=== PATIENT | male | born 1940 | race Caucasian/White ===

== ENCOUNTER → 2018-11-26 10:23 | Outpatient (CLI) | payer MEDICARE, SELFPAY ==
--- NOTE | 2018-11-26 10:36 | CT_ITS ---
HISTORY:DEMENTIA, RT COCHLEAR IMPLANT, HX-COPD DEMENTIA, RT COCHLEAR IMPLANT, HX-COPD TECHNIQUE: Multiple axial images were obtained of the brain without intravenous contrast. A radiation dose optimization technique was used for this scan. IV Contrast dosage and agent: None. COMPARISON: December 31, 2013 FINDINGS: # of images incl. paperwork: 255 Study limited by metallic artifact INFARCT: None HEMORRHAGE: None PARENCHYMAL ATTENUATION:Diffuse periventricular white matter low density compatible with chronic small vessel ischemic change similar to prior study MASS: None MIDLINE SHIFT: None BASAL CISTERNS: Patent VENTRICLES: Normal in size and configuration for age PARANASAL SINUSES:Clear MASTOID AIR CELLS: Clear ORBITS:No acute pathology CALVARIUM: Surgical resection of most of the right mastoid. Visualized on the prior study. Again noted is a cochlear implant in similar position a prior study OTHER TISSUES: No acute pathology ASPECTS Score for Acute Strokes: 10 CT/Brain/Head without Contrast IMPRESSION: No acute intracranial pathology. Chronic changes similar to prior study Cochlear implant similar to prior study Individualized dose optimization techniques were used for this CT. at 0134 Reported and signed by: Chayito Lackey DO Electronically Signed: Chayito Lackey DO at 1:33 EDT Tel , Service support ,
== END ==
PROVIDERS: Family Provider Family Medicine; PCP Family Medicine; Referring Provider Psychiatry & Neurology Neurology; Visit Provider Psychiatry & Neurology Neurology
DX: F03.90 Unspecified dementia, unspecified severity, without behavioral disturbance, psychotic disturbance, mood disturbance, and anxiety (principal)
CPT/HCPCS: 70450

== ENCOUNTER 2019-11-21 12:14 | Emergency (ER) | payer MEDICARE, SELFPAY ==
[2019-11-21] VITALS (11 sets, daily range): BP systolic 107–188; BP diastolic 55–89; PULSE 50–90; RESP 16–20; TEMP 37; O2SAT 94–99; BMI 23.9
--- NOTE | 2019-11-21 13:17 | EKG12_ITS ---
Test Reason : MENTAL HEALTH Blood Pressure : / mmHG Vent. Rate : 068 BPM Atrial Rate : 081 BPM P-R Int : 000 ms QRS Dur : 084 ms QT Int : 394 ms P-R-T Axes : 000 051 050 degrees QTc Int : 418 ms Atrial fibrillation Abnormal ECG Confirmed by CYN BONILLA, AVNI ([id number]), telegraph editor DUSTY BUNN ([id number]) on 11/28/2019 8:58:48 AM Referred By: PAT Confirmed By:NAVID ADDISON MD
--- NOTE | 2019-11-21 13:18 | ED.VIS.GEN ---
History of Present Illness Chief Complaint: Mental Health Informant: Patient, Family, SNF Narrative: Patient is currently at present at [facility]. He has been there for approximately 1 year and per nursing staff there had problems with alcohol withdrawal at first. He has become increasingly restless over the past week trying to leave the facility. Yesterday he reportedly posted nurse to get outside. Today he stated that he was going to take the cap off his water bottle and stabbed himself until he was . The patient tells me that he is embarrassed by what transpired. He states that his memory is not what it used to be. He tells me that it is so hard for him to feel locked inside that he just wants to get out and do things. He tells me he cannot remember the name of his hometown. 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 He states he does not feel suicidal or feel that he is a harm to anyone at the time. Staff is concerned because over the past week he seems to be escalating. Past Medical History - Allergies and Home Meds Allergies/Adverse Reactions: Allergies No Known Allergies Allergy (Verified 11/21/19 12:24) Primary Care Physician: Tony Corbin MD [Primary Care Provider] - Prior records reviewed: Yes Surgical History: noncontributory Lives: Intermediate Smoking Status: Never smoker Drugs: None Review of Systems General: Denies: Chills, Fever, Sweats Eyes: Denies: Visual changes - bilaterally, Diplopia ENT: Denies: Rhinorrhea, Sore throat Cardiovascular: Denies: Chest pain, Palpitations Respiratory: Denies: Dyspnea, Cough, Dyspnea on exertion Gastrointestinal: Denies: Abdominal pain, Nausea, Vomiting, Diarrhea, Melena, Hematochezia Genitourinary: Denies: Dysuria, Hematuria, Frequency Musculoskeletal: Denies: Back pain, Extremity Pain Skin: Denies: Rash, Wounds Neurological: Denies: Headache, Weakness, Numbness Psych: Reports: - - Aggressive behavior. memory issues. Please see history of present illness. Denies: Suicidal thoughts, Suicidal ideations Physical Exam Vital Signs/Narrative: Vital Signs Temp Pulse Resp BP Pulse Ox 11/21/19 12:21 98.6 F 77 18 169/88 H 99 Inital Vital Signs reviewed: Yes General: Well nourished, Well developed, No Acute Distress Head: Normocephalic, Atraumatic Eyes: Perrl, EOMI ENT: Moist mucous membranes, No rhinorrhea Neck: Supple, Nontender Cardiovascular: Regular rate, Regular rhythm, No murmurs Respiratory: No distress, CTA bilaterally, Chest nontender Abdomen: Soft, Nontender, Nondistended, Normal bowel sounds Back: Nontender, Normal Inspection Extremities: Nontender, No edema Skin: Normal color, No rash Neurological: Alert, Cranial nerves II-XII grossly intact, Normal Strength, Normal Sensation, - - Patient is unaware of what town he is currently residing in. Patient does not know the year. Psychological: Depressed Diagnostic/Tx/Re-eval Clinical Impression(s) from Imaging Studies Brain CT 11/21/19 13:40 IMPRESSION: Chronic involutional changes of the brain. There has been no change. Electronically Signed: Delano Orantes, at 13:57 EDT , Service support , Chest X-Ray 11/21/19 13:45 IMPRESSION: Hyperinflation. Healed bilateral rib fractures. Electronically Signed: Delano Orantes, at 14:01 EDT , Service support , Laboratory Last Values WBC 5.0 K/mm3 (4.4-11.0) 11/21/19 13:30 RBC 4.37 M/mm3 (4.6-6.2) L 11/21/19 13:30 Hgb 14.0 g/dL (13.0-16.5) 11/21/19 13:30 Hct 42.9 % (40-54) 11/21/19 13:30 MCV 98.2 fL (80-94) H 11/21/19 13:30 MCH 32.0 pg (27.0-32.0) 11/21/19 13:30 MCHC 32.6 g/dL (32-36) 11/21/19 13:30 RDW Std Deviation 53.8 fl (35.1-43.9) H 11/21/19 13:30 RDW Coeff of Mindy 14.8 % (11.6-14.6) H 11/21/19 13:30 Plt Count 111 K/mm3 (150-450) L 11/21/19 13:30 MPV 10.2 fl (6.2-12.0) 11/21/19 13:30 Immature Gran % (Auto) 0.200 % (0.0-0.9) 11/21/19 13:30 Neut % (Auto) 59.9 % (47-70) 11/21/19 13:30 Lymph % (Auto) 30.1 % (19-41) 11/21/19 13:30 Doddridge % (Auto) 7.6 % (0-10) 11/21/19 13:30 Eos % (Auto) 1.6 % (0-5) 11/21/19 13:30 Baso % (Auto) 0.6 % (0-1) 11/21/19 13:30 Absolute Neuts (auto) 3.0 X10^3/uL (2.0-7.7) 11/21/19 13:30 Absolute Lymphs (auto) 1.50 X10^3/uL (0.83-4.51) 11/21/19 13:30 Nucleated RBC % 0 % (0-5) 11/21/19 13:30 Sodium 141 mmol/L (136-145) 11/21/19 13:30 Potassium 4.0 mmol/L (3.5-5.1) 11/21/19 13:30 Chloride 109 mmol/L (98-107) H 11/21/19 13:30 Carbon Dioxide 29.0 mmol/L (21.0-32.0) 11/21/19 13:30 Anion Gap 3 (5-15) L 11/21/19 13:30 BUN 18 mg/dL (7-18) 11/21/19 13:30 Creatinine 1.00 mg/dL (0.70-1.30) 11/21/19 13:30 Estim Creat Clear Calc 65.74 ml/min 11/21/19 13:30 Est GFR (MDRD) Af Amer 93 mL/min (>60) 11/21/19 13:30 Est GFR (MDRD) Non-Af 77 mL/min (>60) 11/21/19 13:30 BUN/Creatinine Ratio 18.0 RATIO (10-20) 11/21/19 13:30 Glucose 91 mg/dL (74-106) 11/21/19 13:30 Calcium 8.8 mg/dL (8.5-10.1) 11/21/19 13:30 Total Bilirubin 0.50 mg/dL (0.20-1.00) 11/21/19 13:30 AST 16 U/L (15-37) 11/21/19 13:30 ALT 22 U/L (16-61) 11/21/19 13:30 Alkaline Phosphatase 60 U/L (45-117) 11/21/19 13:30 Troponin I < 0.015 ng/mL (<0.045) 11/21/19 13:30 Total Protein 7.6 g/dL (6.4-8.2) 11/21/19 13:30 Albumin 4.0 g/dL (3.2-5.0) 11/21/19 13:30 Globulin 3.6 g/dL (2.2-4.2) 11/21/19 13:30 Albumin/Globulin Ratio 1.1 RATIO (0.9-2.4) 11/21/19 13:30 TSH 1.71 uIU/mL (0.358-3.74) 11/21/19 13:30 Urine Color Yellow (Yellow) 11/21/19 13:30 Urine Clarity Clear (Clear) 11/21/19 13:30 Urine pH 7.0 (5.0 - 8.0) 11/21/19 13:30 Ur Specific Kimball 1.015 (1.002-1.030) 11/21/19 13:30 Urine Protein 30 mg/dl (Negative) H 11/21/19 13:30 Urine Glucose (UA) Normal mg/dl (Normal) 11/21/19 13:30 Urine Ketones Negative mg/dl (Negative) 11/21/19 13:30 Urine Occult Blood Negative /ul (Negative) 11/21/19 13:30 Urine Nitrite Negative (Negative) 11/21/19 13:30 Urine Bilirubin Negative mg/dL (Negative) 11/21/19 13:30 Urine Urobilinogen Normal mg/dl (Normal) 11/21/19 13:30 Ur Leukocyte Esterase Negative /ul (Negative) 11/21/19 13:30 Urine RBC 0 SEEN /hpf (0-5) 11/21/19 13:30 Urine WBC 0 SEEN /hpf (0-5) 11/21/19 13:30 Ur Squamous Epith Cells 0-5 SEEN /hpf (0-5) 11/21/19 13:30 Amorphous Sediment 1+ 11/21/19 13:30 Urine Bacteria 2+ /hpf (None Seen) 11/21/19 13:30 Urine Mucus 0 SEEN /hpf (<or=2+) 11/21/19 13:30 Urine Opiates Screen NEGATIVE (< 300 ng/mL) 11/21/19 13:30 Urine Methadone Screen NEGATIVE (< 300 ng/mL) 11/21/19 13:30 Ur Barbiturates Screen NEGATIVE (< 200 ng/mL) 11/21/19 13:30 Ur Phencyclidine Scrn NEGATIVE (< 25 ng/mL) 11/21/19 13:30 Ur Amphetamines Screen NEGATIVE (<1000 ng/mL) 11/21/19 13:30 U Methamphetamin-MDMA NEGATIVE (< 500 ng/mL) 11/21/19 13:30 U Benzodiazepines Scrn NEGATIVE (< 200 ng/mL) 11/21/19 13:30 Urine Cocaine Screen NEGATIVE (< 300 ng/mL) 11/21/19 13:30 U Cannabinoids Screen NEGATIVE (< 50 ng/mL) 11/21/19 13:30 Ur Drug Screen Comment 11/21/19 13:30 Ethyl Alcohol 6.0 mg/dL 11/21/19 13:30 - EKG Initial EKG Interpretation: Sinus Rhythm - EKG demonstrates a sinus rhythm with first-degree AV block with PACs. The sinus rhythm is best appreciated in lead V1. - Medical Decision Making We got social work involved in this case early. Social work to discuss with family and interviewed the patient. One point the patient got agitated got dressed and attempted to leave the emergency department. He was redirected. I have asked that we move the patient into a room that has a television and provide a newspaper. Patient's metabolic work-up is normal. Patient is cleared for crisis/psychiatric assessment from a medical standpoint. We are working towards transferring to the [facility] psychiatric facility. ED Disposition - Plan for ED Patient: Diagnosis: Dementia with aggressive behavior Referrals: Tony Corbin MD [Primary Care Provider] -
[2019-11-21 13:37] LABS: Mucous, Urine 0 SEEN /hpf (<or=2+); Red Blood Cells-Urine 0 SEEN /hpf (0-5)
--- NOTE | 2019-11-21 13:40 | CT_ITS ---
STUDY: CT BRAIN WITHOUT CONTRAST REASON FOR EXAM: Male, 78 years old. ALTERED MENTAL STATUS. RADIATION DOSAGE (If Supplied By Facility): CTDIvol = ( 60.81 ) mGy, DLP = ( 1089.89 ) mGycm TECHNIQUE: Transaxial CT imaging of the brain was performed without administration of intravenous contrast material. Individualized dose optimization techniques were used for this CT. COMPARISON: Comparison is made with prior study dated 11/26/2018. FINDINGS: Normal soft tissue structures. Right cochlear implant causes beam hardening artifacts overlying the posterior right cerebral hemisphere. There is mild cerebral atrophy with widening of the extra-axial spaces and ventricular dilatation. There are areas of decreased attenuation within the white matter tracts of the supratentorial brain, consistent with microvascular disease changes. Normal basal ganglia and thalami. Normal brainstem. Normal cerebellum. There is no intracranial hemorrhage. There are no findings of an acute ischemic infarction. Atherosclerotic calcific plaques of the vertebral arteries and cavernous portions of the internal carotid arteries bilaterally. Normal visualized paranasal sinuses. CT/Brain/Head without Contrast IMPRESSION: Chronic involutional changes of the brain. There has been no change. Electronically Signed: Delano Orantes, at 13:57 EDT , Service support ,
[2019-11-21 13:41] LABS: Color, Urine Yellow (Yellow); Glucose, Dipstick Normal (Normal); Ketone-Dipstick Negative (Negative); Leukocyte Esterase-Dipstick Negative /ul (Negative); Nitrite-Dipstick Negative (Negative); Occult Blood-Urine Negative /ul (Negative); Protein-Dipstick 30 mg/dl (Negative); Specific Gravity, Urine 1.015 (1.002-1.030); Urine Bilirubin Dipstick Negative (Negative); Urine Clarity Clear (Clear); Urine Urobilinogen Normal (Normal)
[2019-11-21 13:42] LABS: Basophil# 0.03 X10^3/uL; Basophil% 0.6 % (0-1); Eosinophil# 0.08 X10^3/uL; Eosinophils% 1.6 % (0-5); Hematocrit 42.9 % (40-54); Lymphocyte % 30.1 % (19-41); Mean Corp Hgb Conc 32.6 g/dL (32-36); Mean Corpuscular Volume 98.2 fL (80-94); Mean Platelet Vol. 10.2 fl (6.2-12.0); Monocyte# 0.38 X10^3/uL; Monocyte% 7.6 % (0-10); NRBC Flagged by Analyzer 0 % (0-5); Neutrophil # 2.99 X10^3/uL (2.7-7.7); Neutrophil % 59.9 % (47-70); Platelet Count 111 K/mm3 (150-450); RBC Distribution Width CV 14.8 % (11.6-14.6); RBC Distribution Width SD 53.8 fl (35.1-43.9); Red Blood Count 4.37 M/mm3 (4.6-6.2)
[2019-11-21 13:45] LABS: White Blood Cells 0 SEEN /hpf (0-5)
--- NOTE | 2019-11-21 13:45 | RAD_ITS ---
STUDY: X-RAY CHEST REASON FOR EXAM: Male, 78 years old. Mental health, sob TECHNIQUE: AP and lateral views of the chest. COMPARISON: Comparison is made with prior study dated 12/31/2013. FINDINGS: Hyperinflation. Scattered calcified granulomas. There is no demonstrated pleural abnormality. Normal size heart. Normal mediastinum and ivonne. Normal visualized pulmonary arteries. There is atherosclerotic calcification of the aortic arch with tortuosity. Normal visualized thoracic spine. Healed bilateral rib fractures. There is no demonstrated abnormality of the visualized soft tissue structures of the upper abdomen. RAD/Chest PA and Lateral IMPRESSION: Hyperinflation. Healed bilateral rib fractures. Electronically Signed: Delano Orantes, at 14:01 EDT , Service support ,
[2019-11-21 13:49] LABS: Bacteria 2+ /hpf (None Seen); Squamous Epithelial Cells - UA 0-5 SEEN /hpf (0-5)
[2019-11-21 13:50] LABS: Amorphous Sediment 1+; Amphetamine Urine VISTA NEGATIVE (<1000 ng/mL); Barbiturate Urine VISTA NEGATIVE (< 200 ng/mL); Benzodiazepine Urine VISTA NEGATIVE (< 200 ng/mL); Cocaine Urine VISTA NEGATIVE (< 300 ng/mL); Ecstacy Urine VISTA NEGATIVE (< 500 ng/mL); Methadone Urine VISTA NEGATIVE (< 300 ng/mL); PCP Urine VISTA NEGATIVE (< 25 ng/mL); THC Urine VISTA NEGATIVE (< 50 ng/mL); Vista UDS pH Range 6
[2019-11-21 14:25] LABS: ALB/GLOB Ratio 1.1 RATIO (0.9-2.4); AST(SGOT) 16 U/L (15-37); Alanine Aminotransfer ALT/SGPT 22 U/L (16-61); Alkaline Phosphatase 60 U/L (45-117); Anion Gap 3 (5-15); BUN 18 mg/dL (7-18); Calcium,Total 8.8 mg/dL (8.5-10.1); Chloride 109 mmol/L (98-107); EST Glomerular Filtration Rate 77 mL/min (>60); Est Glom Filt Rate - Afr Amer 93 mL/min (>60); Estimated Creatinine Clearance 65.74 ml/min; Globulin 3.6 g/dL (2.2-4.2); Glucose 91 mg/dL (74-106); Protein, Total 7.6 g/dL (6.4-8.2); Sodium Level 141 mmol/L (136-145); Thyroid Stim Hormone (TSH) 1.71 uIU/mL (0.358-3.74)
--- NOTE | 2019-11-21 15:00 | CM.ED ---
SOCIAL WORK Informant: Dr. Rowland Reason for Consult: Mental Health Evaluation Chief Compliant: Patient sent in from [facility]. Patient with history of dementia and hard of hearing. Patient from [facility]. Patient has tried to elope from facility and making suicidal comments with plan. 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 Treatment/History: Patient denies any history of mental health. Per patient's daughter, patient was hospitalized in September 2019 for [facility] psych. Triggers/Stressors: Patient wants to go home. 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 Coping Skills: Taking walks Substance Abuse History: Patient reports I used to drink in college. Per patient's daughter/Fabiola HELLER, patient heavily drank throughout adult life. Risk to Self/Others: Suicidal- Patient currently denies suicidal ideation, plan or intent. Updated by nurse at [facility], patient has been trying to escape and reported plan of ripping off top of water bottle and stab myself in the neck until I'm . Daughter states patient has made comments such as I'm just going to sit here and . Homicidal- Patient denies any homicidal ideation. Mental Status Exam: Orientation- A&Ox2 Memory- Impaired Appearance/General Behavior- clean/appropriate, agitated, calm, directable Mood/Affect- anxious Communication Pattern- responds to questions, requires extra time and questions repeated as patient is hard of hearing Thought Process- fragmented Judgment- unable to evaluate Assessment: Assessment completed by gathering information from nurseLore at [facility], patient's daughter/AMADOUFabiola Franck- [phone] and patient. Patient from [facility] and has been declining mentally over the last couple weeks. Patient has been refusing medications, meals, and has been exhibiting manic behaviors. Nurse reports patient has been trying to elope from facility and will pace in front of the doors. Patient has verbalized suicidal ideation with plan to nurse at [employer] [facility]. This worker attempted to complete assessment with patient. Patient confused and wanting to leave. 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 Discussed patient's status with daughter/HPOA, Fabiola who is in agreement with nicole psych hospitalization for stabilization. Collaboration with Dr. Rowland. Plan for [facility] psych. This worker to facilitate placement. Plan: Referral for nicole psych hospitalization. Cristobal Mcpherson, VOIP NETWORK TECHNICIAN, GAS REGULATOR REPAIRER HELPER
--- NOTE | 2019-11-21 15:47 | CHAPLAIN ---
Type of Pastoral Visit _x__ Initial Visit ___ Follow-up Visit ___ On-call Visit ___ General Patient Visit ___ Spiritual Assessment ___ Family Conference ___ Bereavement ___ Rapid Response ___ Code Blue ___ Other (describe below) Pastoral Care Referral From ___ Patient ___ Family _x__ Nurse ___ Physician ___ Virtual Assistant For Advertisers ___ Powerhouse Mechanic Apprentice ___ Other (describe below) Sacrament/Intervention _x__ Active listening ___ Anointing ___ Hinduism ___ Bereavement ___ Communion ___ Debbie exploration ___ ___ Life review ___ Prayer ___ Reconciliation ___ Sacrament of Sick _x__ Supportive presence ___ Wedding ___ Other (describe below) Pastoral Comments referral from auto tech during rounding in ED; sat with patient in room; pt could not tell this rare/endangered species specialist where he came from or where he was specifically but he could describe his residence and condition; pt was asking when his daughter would come to pick him up; pt was pleasant but confused; listened to patient; gave reassurance that he was safe and would be properly cared for in the ED; SW came to assess pt and this rare/endangered species specialist left
--- NOTE | 2019-11-21 16:22 | CM.ED ---
SOCIAL WORK Referral faxed and called to [facility]. Pending review at this time Cristobal Mcpherson, GREY GOODS EXAMINER, DOCUMENT COORDINATOR
[2019-11-21] MEDS: Haloperidol Lactate 5 MG/ML Vial IM (17:57)
--- NOTE | 2019-11-21 18:15 | NURSING ---
PER OUR TELEPHONE SALES AGENT ESEQUIEL MOORE IS REFERRED TO [facility]
--- NOTE | 2019-11-21 18:53 | CM.ED ---
SOCIAL WORK Call to [facility] to verify referral received, spoke with Leigh. Referral being reviewed at this time. Cristobal Mcpherson, E COMMERCE MANAGER, CLIENT SERVICE SUPERVISOR
--- NOTE | 2019-11-21 19:23 | CM.ED ---
SOCIAL WORK Call to patient's daughter to update on patient's status and referral for [facility] psych placement is pending at [facility]. All questions answered. Daughter to be updated once placement confirmed. Cristobal Mcpherson, SALES REPRESENTATIVE [employer], RN COMPLEX CARE
--- NOTE | 2019-11-21 19:54 | CM.ED ---
SOCIAL WORK Negative COVID-19 results and medication list faxed to [facility].
[2019-11-21] MEDS: LORazepam 2 MG/ML Syringe IM (20:12)
--- NOTE | 2019-11-21 20:13 | ED.RN ---
PT CONTINUED TO WALK OUT OF ROOM LOOKING FOR HIS CLOTHES, WANTING TO LEAVE. MULTIPLE EMPLOYEES MADE ATTEMPTS TO GET PT BACK INTO ROOM. OR MEDS INITIALLY ORDERED, PHARMACY DID NOT PROVIDE IN ADEQUATE TIME. IM MEDS OBTAINED FROM . PT WAS PLACED INTO RESTRAINTS HE WAS YELLING AT STAFF, TRYING TO HIT AND KICK STAFF.
--- NOTE | 2019-11-21 20:26 | CM.ED ---
SOCIAL WORK Call from [place] with [facility]. Patient accepted by Dr. Freeman to room 200 bed 2. Report to be called to . Facility has set up transport that is to arrive around 9:40p. Staff updated. Call to patient's daughter Fabiola to update on the above. Cristobal Mcpherson, INDEPENDENT CROP CONSULTANT, RN ONCOLOGY
[2019-11-21] MEDS: MELATONIN 3 MG TABLET PO (20:47)
[2019-11-21] MEDS: Gabapentin 300 MG Capsule PO (20:47)
[2019-11-21] MEDS: Famotidine 20 MG Tablet PO (20:47)
[2019-11-21] MEDS: QUEtiapine 25 MG Tablet PO (20:48)
== END 2019-11-21 23:03 ==
PROVIDERS: Emergency Provider Emergency Medicine; PCP Family Medicine
DX: F03.91 Unspecified dementia, unspecified severity, with behavioral disturbance (principal); I44.0 Atrioventricular block, first degree; I49.1 Atrial premature depolarization; Z79.899 Other long term (current) drug therapy
CPT/HCPCS: 36415; 70450; 71046; 80053; 80307; 80320; 81001; 84443; 84484; 85025; 87635; 93005; 96372; 99285; G0480; U0003

== ENCOUNTER → 2019-12-20 15:40 | Outpatient (REF) | payer MEDICARE, SELFPAY ==
[2019-11-21 12:21] VITALS: BMI 23.9
[2019-12-20 18:03] LABS: AST(SGOT) 18 U/L (15-37); Alanine Aminotransfer ALT/SGPT 25 U/L (16-61); Albumin, Serum 3.7 g/dL (3.2-5.0); Alkaline Phosphatase 66 U/L (45-117); Anion Gap 2 (5-15); BUN 23 mg/dL (7-18); BUN/Creat Ratio 20.2 RATIO (10-20); Calcium,Total 8.7 mg/dL (8.5-10.1); Chloride 108 mmol/L (98-107); Creatinine, Serum 1.14 mg/dL (0.70-1.30); EST Glomerular Filtration Rate 66 mL/min (>60); Est Glom Filt Rate - Afr Amer 80 mL/min (>60); Globulin 3.8 g/dL (2.2-4.2); Glucose 91 mg/dL (74-106); Magnesium 2.2 mg/dL (1.6-2.6); Potassium 4.2 mmol/L (3.5-5.1); Protein, Total 7.5 g/dL (6.4-8.2); Sodium Level 141 mmol/L (136-145)
== END ==
PROVIDERS: PCP Family Medicine; Referring Provider Family Medicine; Visit Provider Family Medicine
DX: F03.90 Unspecified dementia, unspecified severity, without behavioral disturbance, psychotic disturbance, mood disturbance, and anxiety (principal); Z79.899 Other long term (current) drug therapy
CPT/HCPCS: 80053; 83735

== ENCOUNTER 2020-05-13 18:29 | Inpatient (IN) | payer MEDICARE, SELFPAY ==
[2019-11-21 12:21] VITALS: BMI 23.9
[2020-05-13] VITALS (9 sets, daily range): BP systolic 90–144; BP diastolic 63–81; PULSE 88–105; RESP 16–22; TEMP 36.4–37.3; O2SAT 90–95; BMI 24.5; BMI 24.0; BMI 76.1
--- NOTE | 2020-05-13 18:30 | EKG12_ITS ---
Test Reason : GI BLEED Blood Pressure : / mmHG Vent. Rate : 101 BPM Atrial Rate : 101 BPM P-R Int : 206 ms QRS Dur : 084 ms QT Int : 332 ms P-R-T Axes : 057 068 065 degrees QTc Int : 430 ms Sinus tachycardia with Premature atrial complexes T wave abnormality, consider inferior ischemia Abnormal ECG Confirmed by CYN BONILLA, AVNI ([id number]), department editor GUI FINCH ([id number]) on 05/16/2020 12:35:43 PM Referred By: LASHON Confirmed By:NAVID ADDISON MD
--- NOTE | 2020-05-13 18:36 | ED.VIS.GEN ---
History of Present Illness Chief Complaint: GI Bleed Informant: Histology Assistant, SNF Limited by: Dementia Onset: Today Context: Sudden Onset Timing: Intermittent Quality: Vomited coffee ground several times since this morning Location: [facility], upper GI bleed Current Severity: Severe - Resume since patient is hypotensive Maximum Severity: Severe Worsened by: Unknown Relieved by: Nothing Associated Symptoms: Unknown Narrative: Patient is an elderly male from [facility] with multiple medical problems including dementia and unable to cooperate/participate in his history and physical. Paramedics informed me that he has been vomiting several times since this morning. He has coffee-ground emesis. He apparently was not hypotensive per EMS. He is hypotensive in the emergency department. He is on no anticoagulant. He is not on Brilinta or Plavix either. No other history is available. Prior similar symptoms: No Recent Illness/Hospitalization: No - Past Medical History (1) History of dementia Status: Acute (2) History of BPH Status: Acute (3) History of hypertension Status: Acute (4) History of psychiatric disorder Status: Acute (5) History of gastroesophageal reflux (GERD) Status: Acute (6) History of COPD Status: Chronic Past Medical History - Allergies and Home Meds Allergies/Adverse Reactions: Allergies No Known Allergies Allergy (Verified 11/21/19 12:24) Primary Care Physician: Tony Corbin MD [Primary Care Provider] - Prior records reviewed: Yes Surgical History: noncontributory Lives: [facility] Smoking Status: Never smoker Alcohol: None Drugs: None Review of Systems ROS: Unable to Obtain - Nonverbal and no complaints when he does respond Physical Exam Vital Signs/Narrative: Vital Signs Temp Pulse Resp BP Pulse Ox 05/13/20 18:32 98.1 F 102 H 22 H 90/63 90 Inital Vital Signs reviewed: Yes General: Well nourished, Well developed, No Acute Distress Head: Normocephalic, Atraumatic Eyes: Perrl, EOMI, Pale conjunctiva. Negative for: Scleral icterus ENT: Moist mucous membranes, No rhinorrhea Neck: Supple, Nontender, No lymphadenopathy, No JVD Cardiovascular: Regular rhythm, Tachycardia Respiratory: No distress, CTA bilaterally, Chest nontender Abdomen: Soft, Nontender, Nondistended, Normal bowel sounds Back: Nontender, Normal Inspection Extremities: Nontender, No edema Skin: No rash, No Trauma. Negative for: Normal color, Cyanosis, Diaphoresis, Jaundice Neurological: Alert, Cranial nerves II-XII grossly intact, Normal Strength, Normal Sensation. Negative for: Oriented x3 Psychological: Normal affect Diagnostic/Tx/Re-eval 05/13/20 18:31 Abdomen Single View (Portable) [RAD] Stat Laboratory Results 05/13/20 05/13/20 05/13/20 18:35 18:35 18:35 WBC 8.2 RBC 4.47 L Hgb 14.4 Hct 43.5 MCV 97.3 H MCH 32.2 H MCHC 33.1 RDW Std Deviation 52.5 H RDW Coeff of Mindy 14.6 Plt Count 100 L MPV 10.0 Immature Gran % (Auto) 0.200 Neut % (Auto) 84.9 H Lymph % (Auto) 11.1 L Wilson % (Auto) 3.6 Eos % (Auto) 0.0 Baso % (Auto) 0.2 Absolute Neuts (auto) 7.0 Absolute Lymphs (auto) 0.91 Nucleated RBC % 0 PT 15.8 H INR 1.3 APTT 37.0 H Sodium 141 Potassium 3.4 L Chloride 106 Carbon Dioxide 26.0 Anion Gap 9 BUN 46 H Creatinine 2.06 H Estim Creat Clear Calc 29.53 Est GFR (MDRD) Af Amer 40 L Est GFR (MDRD) Non-Af 33 L BUN/Creatinine Ratio 22.3 H Glucose 152 H Lactic Acid Calcium 8.7 Total Bilirubin 0.70 AST 16 ALT 20 Alkaline Phosphatase 56 Troponin I < 0.015 Total Protein 7.9 Albumin 4.1 Globulin 3.8 Albumin/Globulin Ratio 1.1 Blood Type Antibody Screen 05/13/20 05/13/20 18:35 18:35 WBC RBC Hgb Hct MCV MCH MCHC RDW Std Deviation RDW Coeff of Mindy Plt Count MPV Immature Gran % (Auto) Neut % (Auto) Lymph % (Auto) Wilson % (Auto) Eos % (Auto) Baso % (Auto) Absolute Neuts (auto) Absolute Lymphs (auto) Nucleated RBC % PT INR APTT Sodium Potassium Chloride Carbon Dioxide Anion Gap BUN Creatinine Estim Creat Clear Calc Est GFR (MDRD) Af Amer Est GFR (MDRD) Non-Af BUN/Creatinine Ratio Glucose Lactic Acid 3.1 H* Calcium Total Bilirubin AST ALT Alkaline Phosphatase Troponin I Total Protein Albumin Globulin Albumin/Globulin Ratio Blood Type AB POSITIVE Antibody Screen NEGATIVE NG could not be passed. Since his hemoglobin is stable we will not sedate patient to place an NG. He does have coffee-ground creatinine is elevated from baseline, November 2019. Lactate is elevated probably due to hypotension. He did respond to the liter of fluids that was given. Graph spoke with daughter over the phone. He is DNR Comfort Care arrest. A MOLST form was completed by me. Total time 10 minutes. - EKG Initial EKG Interpretation: Sinus Tachycardia - 9 is tachycardia with a ventricular rate of 101 and premature atrial beats noted. WV interval is 206 ms. QRS duration 84 ms. QT duration 3 to 22 ms. Walsh is normal. There is ST-T wave nonspecific changes as well as motion artifact. Prior: Changed - None Civic ST-T wave changes are new since November 21, 2019 - Medical Decision Making Patient is hypotensive. He received a fluid bolus. He was typed and screened. [facility] blood work was obtained as well as coags. group home was contacted. He vomited twice per nurse. She states she does not know him well. He apparently has a signed DNR Comfort Care arrest document. Awaiting for nursing facility to/scan for review. - Critical Care Time Critical care time (excluding procedures): 30-74 minutes - Time 32 minutes which included pain history, physical, documentation, review of prior records, review of skilled nursing records, discussion with daughter regarding CODE STATUS, Discussing w/Patient &/or Family/Construction Flagger, Discussing w/Consultants, Arranging Admission or Transfer ED Disposition - Plan for ED Patient: Disposition: Acute Care Hospital [facility] Diagnosis: Upper GI bleed, Hypotension, Lactic acidosis, CATHLEEN (acute kidney injury) Referrals: Tony Corbin MD [Primary Care Provider] -
[2020-05-13] MEDS: 0.9% Normal Saline 1,000 ML 1000 ML IV (18:40)
--- NOTE | 2020-05-13 18:41 | ED.RN ---
PER [facility], PT HAS HAD 2 COFFEE GROUND EMESIS TODAY. HAS NOT HAVE ANY ISSUES PRIOR TO TODAY. PT NORMALLY AMBULATORY
[2020-05-13 18:51] LABS: Absolute Lymphocyte Count 0.91 X10^3/uL (0.83-4.51); Basophil# 0.02 X10^3/uL; Basophil% 0.2 % (0-1); Hematocrit 43.5 % (40-54); Hemoglobin 14.4 g/dL (13.0-16.5); Lymphocyte # 0.91 X10^3/ul (4.0); Lymphocyte % 11.1 % (19-41); Mean Corp Hgb Conc 33.1 g/dL (32-36); Mean Corpuscular Hgb 32.2 pg (27.0-32.0); Mean Corpuscular Volume 97.3 fL (80-94); Monocyte% 3.6 % (0-10); NRBC Flagged by Analyzer 0 % (0-5); Neutrophil # 6.98 X10^3/uL (2.7-7.7); Neutrophil % 84.9 % (47-70); Platelet Count 100 K/mm3 (150-450); RBC Distribution Width CV 14.6 % (11.6-14.6); RBC Distribution Width SD 52.5 fl (35.1-43.9); Red Blood Count 4.47 M/mm3 (4.6-6.2); White Blood Count 8.2 K/mm3 (4.4-11.0)
[2020-05-13 18:56] LABS: International Normalized Ratio 1.3; Prothrombin Time (Protime)PT. 15.8 SECONDS (11.7-14.9)
[2020-05-13 19:05] LABS: ALB/GLOB Ratio 1.1 RATIO (0.9-2.4); AST(SGOT) 16 U/L (15-37); Alanine Aminotransfer ALT/SGPT 20 U/L (16-61); Albumin, Serum 4.1 g/dL (3.2-5.0); Alkaline Phosphatase 56 U/L (45-117); Anion Gap 9 (5-15); BUN 46 mg/dL (7-18); BUN/Creat Ratio 22.3 RATIO (10-20); Calcium,Total 8.7 mg/dL (8.5-10.1); Chloride 106 mmol/L (98-107); Creatinine, Serum 2.06 mg/dL (0.70-1.30); EST Glomerular Filtration Rate 33 mL/min (>60); Est Glom Filt Rate - Afr Amer 40 mL/min (>60); Estimated Creatinine Clearance 29.53 ml/min; Globulin 3.8 g/dL (2.2-4.2); Glucose 152 mg/dL (74-106); Potassium 3.4 mmol/L (3.5-5.1); Protein, Total 7.9 g/dL (6.4-8.2); Sodium Level 141 mmol/L (136-145)
[2020-05-13 19:14] LABS: Lactic Acid 3.1 mmol/L (0.4-1.9)
[2020-05-13] MEDS: 0.9% Normal Saline 1,000 ML 150 ML IV ×2 (20:21→21:56)
--- NOTE | 2020-05-13 20:27 | HP.PCM_ITS ---
Problem List (1) History of dementia Status: Chronic (2) History of BPH Status: Chronic (3) History of hypertension Status: Chronic (4) History of psychiatric disorder Status: Chronic (5) History of gastroesophageal reflux (GERD) Status: Chronic (6) History of COPD Status: Chronic (7) Upper GI bleed Status: Acute (8) Hypotension Status: Acute (9) Lactic acidosis Status: Acute History of Present Illness Date of Admission: 05/13/20 Chief Complaint: hematemesis The patient is a 79 year old male patient [facility] with a past medical history of dementia and inability to provide history presents the emergency room with vomiting blood. He has had several episodes of coffee- ground emesis at the jail and was transferred for evaluation. The patient is unable to communicate reliably but does open his eyes to stimulation and struggles to get words out. Initial hemoglobin is 14, However, he has had further hematemesis episodes in the emergency room and admission was requested. Surgical consult was obtained via telephone with Dr. Goldstein who plans to do EGD. Past Medical History Past Medical History (Chronic Problems): Chronic Problems History of dementia (Chronic) History of BPH (Chronic) History of hypertension (Chronic) History of psychiatric disorder (Chronic) History of gastroesophageal reflux (GERD) (Chronic) History of COPD (Chronic) Allergies No Known Allergies Allergy (Verified 11/21/19 12:24) Home Medications: Ambulatory Orders Medication Instructions Recorded Cholecalciferol (Vitamin D3) 5,000 unit PO DAILY 05/13/20 [Vitamin D3] Cyanocobalamin (Vitamin B-12) 1,000 mcg PO DAILY 05/13/20 [Vitamin B-12] Famotidine [Acid-Pep] 20 mg PO BID 05/13/20 Folic Acid 1 mg PO DAILY 05/13/20 Gabapentin 300 mg PO QHS 05/13/20 Haloperidol [Haldol] 1 mg PO BID PRN 05/13/20 Lorazepam [Ativan] 0.5 mg PO 4X/DAY PRN PRN 05/13/20 Melatonin/Pyridoxine HCl (B6) 1 each PO QHS 05/13/20 [Melatonin 3 mg Tablet] Memantine HCl [Namenda] 10 mg PO BID 05/13/20 Mirtazapine [Remeron] 15 mg PO QHS 05/13/20 Multivitamin with Folic Acid 400 mcg PO DAILY 05/13/20 [Tab-A-Namita Tablet] Quetiapine Fumarate [Seroquel] 100 mg PO TID 05/13/20 Thiamine HCl [Vitamin B-1] 100 mg PO DAILY 05/13/20 Surgical History: noncontributory Lives: Retirement Smoking Status: Never smoker Alcohol: None Drugs: None - *Family History Maternal History Items: No pertinent history Review of Systems Unable to obtain accurate/complete ROS d/t: patient is non communicative VTE Information - Inpt Only VTE Present on Admission: No VTE Mechan Device Prophylaxis: SCD's VTE Pharm Prophylaxis ordered?: No - Physical Exam Vitals/I&O's: Vital Signs Temp Pulse Resp BP Pulse Ox 99.1 F 98 16 120/69 94 05/13/20 20:22 05/13/20 20:22 05/13/20 20:22 05/13/20 20:22 05/13/20 20:22 Oxygen Delivery Method Room Air Weight: 170 lb 13.732 oz Body Mass Index (BMI) 24.5 Intake and Output for Last 24 Hours 05/11/20 05/12/20 05/13/20 23:59 23:59 23:59 Intake Total 1035 / 1035 Balance 1035 / 1035 General: Alert, Confused, Disoriented, Lethargic HEENT: Atraumatic, Normocephalic Neck: Supple Lungs: Clear to auscultation, Normal air movement Cardiovascular: Regular rate, Normal S1, Normal S2, No murmurs Abdomen: Bowel Sounds Present, Soft, Non Tender Extremities: No edema Skin: No rashes, No breakdown Musculoskeletal: No Tenderness to Palpation of Joints or Extremities Neurological: Neuro grossly intact Psych/Mental Status: Restless Laboratory Results 05/13/20 18:35: WBC 8.2, RBC 4.47 L, Hgb 14.4, Hct 43.5, MCV 97.3 H, MCH 32.2 H, MCHC 33.1, RDW Std Deviation 52.5 H, RDW Coeff of Mindy 14.6, Plt Count 100 L, MPV 10.0, Immature Gran % (Auto) 0.200, Neut % (Auto) 84.9 H, Lymph % (Auto) 11.1 L, [place] % (Auto) 3.6, Eos % (Auto) 0.0, Baso % (Auto) 0.2, Absolute Neuts (auto) 7.0, Absolute Lymphs (auto) 0.91, Nucleated RBC % 0 05/13/20 18:35: PT 15.8 H, INR 1.3, APTT 37.0 H 05/13/20 18:35: Sodium 141, Potassium 3.4 L, Chloride 106, Carbon Dioxide 26.0, Anion Gap 9, BUN 46 H, Creatinine 2.06 H, Estim Creat Clear Calc 29.53, Est GFR (MDRD) Af Amer 40 L, Est GFR (MDRD) Non-Af 33 L, BUN/Creatinine Ratio 22.3 H, Glucose 152 H, Calcium 8.7, Total Bilirubin 0.70, AST 16, ALT 20, Alkaline Phosphatase 56, Troponin I < 0.015, Total Protein 7.9, Albumin 4.1, Globulin 3.8, Albumin/Globulin Ratio 1.1 05/13/20 18:35: Lactic Acid 3.1 H* 05/13/20 18:35: Blood Type AB POSITIVE, Antibody Screen NEGATIVE Current Medications Sodium Chloride () 1,000 mls @ 150 mls/hr IV .Q6H40M [facility] Last Admin: 05/13/20 20:21 Dose: 150 mls/hr Documented by: Assessment/Plan All Active Problems Upper GI bleed (Acute) Hypotension (Acute) Lactic acidosis (Acute) CATHLEEN (acute kidney injury) (Acute) Chronic Problems History of dementia (Chronic) History of BPH (Chronic) History of hypertension (Chronic) History of psychiatric disorder (Chronic) History of gastroesophageal reflux (GERD) (Chronic) History of COPD (Chronic) Plan 1. Acute upper GI bleed?admit patient to PCU, check H&H every 4 hours, consult Dr. Goldstein for EGD in the morning, make patient n.p.o., IV Protonix 40 mg twice daily, hold all NSAIDs and p.o. medications at this time repeat CBC CMP in the morning with lactic acid. 2. Lactic acidosis?IV hydration and repeat per routine 3. Hypertension?monitor blood pressure and adjust accordingly if necessary patient has been hypotensive up till now and did respond to fluid bolus. 4. DVT prophylaxis?SCDs due to active bleeding 5. GERD?patient will be on PPI Patient is DNR Comfort Care arrest and paperwork is in his chart. Inpatient E&M: 62448 Init Hosp L3
[2020-05-13 22:02] LABS: Hematocrit 41.2 % (40-54); Hemoglobin 13.4 g/dL (13.0-16.5); POSITIVE COUNT YES
--- NOTE | 2020-05-13 22:13 | NURSING ---
daughter called asking us to not lose the pt choclear implants.. implant not with pt in room. Called down to ed. eve said was never there. irena hayes called and talked to megan and it was there on his table.
--- NOTE | 2020-05-13 22:16 | NURSING ---
jerel daughter notified that implant is at [facility]
[2020-05-13 22:43] LABS: Reflex Lactate? Y
[2020-05-13 23:56] LABS: Lactic Acid 2.7 mmol/L (0.4-1.9)
[2020-05-14] VITALS (16 sets, daily range): BP systolic 77–146; BP diastolic 48–83; PULSE 73–104; RESP 15–20; TEMP 35.9–37.3; O2SAT 90–98; BMI 24.0
[2020-05-14 01:19] LABS: Hematocrit 42.7 % (40-54); Hemoglobin 13.4 g/dL (13.0-16.5)
[2020-05-14] MEDS: Ondansetron 4 MG/2 ML Vial IV (02:11)
[2020-05-14] MEDS: 0.9% Normal Saline 1,000 ML 150 ML IV (04:24)
[2020-05-14 06:01] LABS: Absolute Neutrophil Count 5.1 X10^3/uL (2.0-7.7); Basophil# 0.01 X10^3/uL; Basophil% 0.2 % (0-1); Hematocrit 38.1 % (40-54); Hemoglobin 12.3 g/dL (13.0-16.5); Lymphocyte % 15.4 % (19-41); Mean Corp Hgb Conc 32.3 g/dL (32-36); Mean Corpuscular Volume 99.2 fL (80-94); Mean Platelet Vol. 10.7 fl (6.2-12.0); Monocyte# 0.36 X10^3/uL; Monocyte% 5.5 % (0-10); NRBC Flagged by Analyzer 0 % (0-5); Neutrophil % 78.6 % (47-70); POSITIVE COUNT YES; Platelet Count 82 K/mm3 (150-450); RBC Distribution Width CV 14.6 % (11.6-14.6); RBC Distribution Width SD 53.4 fl (35.1-43.9); Red Blood Count 3.84 M/mm3 (4.6-6.2); White Blood Count 6.5 K/mm3 (4.4-11.0)
[2020-05-14 06:11] LABS: International Normalized Ratio 1.4; Prothrombin Time (Protime)PT. 16.7 SECONDS (11.7-14.9)
[2020-05-14 06:29] LABS: ALB/GLOB Ratio 1.1 RATIO (0.9-2.4); AST(SGOT) 22 U/L (15-37); Alanine Aminotransfer ALT/SGPT 18 U/L (16-61); Albumin, Serum 3.3 g/dL (3.2-5.0); Alkaline Phosphatase 44 U/L (45-117); BUN 56 mg/dL (7-18); BUN/Creat Ratio 38.6 RATIO (10-20); Chloride 113 mmol/L (98-107); Creatinine, Serum 1.45 mg/dL (0.70-1.30); EST Glomerular Filtration Rate 50 mL/min (>60); Est Glom Filt Rate - Afr Amer 60 mL/min (>60); Estimated Creatinine Clearance 41.95 ml/min; Globulin 3.1 g/dL (2.2-4.2); Glucose 137 mg/dL (74-106); Potassium 3.1 mmol/L (3.5-5.1); Protein, Total 6.4 g/dL (6.4-8.2); Sodium Level 146 mmol/L (136-145)
[2020-05-14 06:30] LABS: Anion Gap 8 (5-15)
--- NOTE | 2020-05-14 08:33 | NURSING ---
student rn with instructor retook patient's blood pressure. patient sitting up in bed, no distress noted. primary rn notified of blood pressure.
[2020-05-14] MEDS: Haloperidol Lactate 5 MG/ML Vial 2 MG IV ×3 (08:52→17:47)
--- NOTE | 2020-05-14 11:05 | NURSING ---
Attempted to call endo. They did not answer. Spoke recently with Katlin in AC to notify her the pt was coming down for scope.
--- NOTE | 2020-05-14 11:54 | PCM.CONS.GEN ---
Problem List (1) Upper GI bleed Status: Acute Reason for Consult Date of Consultation: 05/14/20 History of Present Illness: he patient is a 79 year old male patient who presents from senior living with a past medical history of dementia and inability to provide history presents the emergency room with vomiting blood. He has had several episodes of coffee-ground emesis at the senior living and was transferred for evaluation. The patient is unable to communicate reliably but does open his eyes to stimulation and struggles to get words out. Initial hemoglobin is 14, However, he has had further hematemesis episodes in the emergency room and admission was requested. . Past Medical History Past Medical History (Chronic Problems): Chronic Problems History of dementia (Chronic) History of BPH (Chronic) History of hypertension (Chronic) History of psychiatric disorder (Chronic) History of gastroesophageal reflux (GERD) (Chronic) History of COPD (Chronic) Allergies No Known Allergies Allergy (Verified 05/13/20 22:19) Home Medications: Ambulatory Orders Medication Instructions Recorded Acetaminophen [Tylenol] 650 mg PO Q6H PRN PRN 05/13/20 Cholecalciferol (Vitamin D3) 5,000 unit PO DAILY 05/13/20 [Vitamin D3] Cyanocobalamin (Vitamin B-12) 1,000 mcg PO DAILY 05/13/20 [Vitamin B-12] Famotidine [Acid-Pep] 20 mg PO BID 05/13/20 Folic Acid 1 mg PO DAILY 05/13/20 Gabapentin 300 mg PO QHS 05/13/20 Haloperidol [Haldol] 1 mg PO BID PRN 05/13/20 Lorazepam [Ativan] 0.5 mg PO 4X/DAY PRN PRN 05/13/20 Melatonin 3 mg PO QHS 05/13/20 Memantine HCl [Namenda] 10 mg PO BID 05/13/20 Mirtazapine [Remeron] 15 mg PO QHS 05/13/20 Multivitamin with Folic Acid 400 mcg PO DAILY 05/13/20 [Tab-A-Namita Tablet] Quetiapine Fumarate [Seroquel] 100 mg PO TID 05/13/20 Thiamine HCl [Vitamin B-1] 100 mg PO DAILY 05/13/20 Surgical History: noncontributory Lives: Intermediate Smoking Status: Never smoker Alcohol: None Drugs: None - *Family History Maternal History Items: No pertinent history Review of Systems Gastrointestinal: Denies: Abdominal Pain, Constipation, Diarrhea, Hematemesis, Nausea, Melena, Vomiting Patient Problems: Active and Suspected Problems Upper GI bleed (Acute) Hypotension (Acute) Lactic acidosis (Acute) - Physical Exam Vitals/I&O's: Vital Signs Temp Pulse Resp BP Pulse Ox 97.9 F 98 17 95/62 97 05/14/20 07:59 05/14/20 07:59 05/14/20 07:59 05/14/20 08:32 05/14/20 07:59 Oxygen Delivery Method Room Air Weight: 167 lb 12.348 oz Body Mass Index (BMI) 24.0 Intake and Output for Last 24 Hours 05/12/20 05/13/20 05/14/20 23:59 23:59 23:59 Intake Total 1255 / 1255 2079 Balance 1255 / 1255 2079 General: Alert, Oriented x3 Lungs: Clear to auscultation Cardiovascular: Regular rate, Regular Rhythm, No murmurs Abdomen: Bowel Sounds Present, Soft, Non Tender, Non-Distended Microbiology Past 72 Hours 05/14/20 11:12 Interface Orders SARS-CoV-2 Antigen (Rapid) - Final Laboratory Results 05/13/20 18:35: WBC 8.2, RBC 4.47 L, Hgb 14.4, Hct 43.5, MCV 97.3 H, MCH 32.2 H, MCHC 33.1, RDW Std Deviation 52.5 H, RDW Coeff of Mindy 14.6, Plt Count 100 L, MPV 10.0, Immature Gran % (Auto) 0.200, Neut % (Auto) 84.9 H, Lymph % (Auto) 11.1 L, Swift % (Auto) 3.6, Eos % (Auto) 0.0, Baso % (Auto) 0.2, Absolute Neuts (auto) 7.0, Absolute Lymphs (auto) 0.91, Nucleated RBC % 0 05/13/20 18:35: PT 15.8 H, INR 1.3, APTT 37.0 H 05/13/20 18:35: Sodium 141, Potassium 3.4 L, Chloride 106, Carbon Dioxide 26.0, Anion Gap 9, BUN 46 H, Creatinine 2.06 H, Estim Creat Clear Calc 29.53, Est GFR (MDRD) Af Amer 40 L, Est GFR (MDRD) Non-Af 33 L, BUN/Creatinine Ratio 22.3 H, Glucose 152 H, Calcium 8.7, Total Bilirubin 0.70, AST 16, ALT 20, Alkaline Phosphatase 56, Troponin I < 0.015, Total Protein 7.9, Albumin 4.1, Globulin 3.8, Albumin/Globulin Ratio 1.1 05/13/20 18:35: Lactic Acid 3.1 H* 05/13/20 18:35: Blood Type AB POSITIVE, Antibody Screen NEGATIVE 05/13/20 21:52: Hgb 13.4, Hct 41.2 05/13/20 23:11: Lactic Acid 2.7 H* 05/14/20 01:10: Hgb 13.4, Hct 42.7 05/14/20 05:38: WBC 6.5, RBC 3.84 L, Hgb 12.3 L, Hct 38.1 L, MCV 99.2 H, MCH 32.0, MCHC 32.3, RDW Std Deviation 53.4 H, RDW Coeff of Mindy 14.6, Plt Count 82 L, MPV 10.7, Immature Gran % (Auto) 0.300, Neut % (Auto) 78.6 H, Lymph % (Auto) 15.4 L, Swift % (Auto) 5.5, Eos % (Auto) 0.0, Baso % (Auto) 0.2, Absolute Neuts (auto) 5.1, Absolute Lymphs (auto) 1.00, Nucleated RBC % 0 05/14/20 05:38: PT 16.7 H, INR 1.4 05/14/20 05:38: Sodium 146 H, Potassium 3.1 L, Chloride 113 H, Carbon Dioxide 25.0, Anion Gap 8, BUN 56 H, Creatinine 1.45 H, Estim Creat Clear Calc 41.95, Est GFR (MDRD) Af Amer 60, Est GFR (MDRD) Non-Af 50 L, BUN/Creatinine Ratio 38.6 H, Glucose 137 H, Calcium 8.0 L, Total Bilirubin 0.40, AST 22, ALT 18, Alkaline Phosphatase 44 L, Total Protein 6.4, Albumin 3.3, Globulin 3.1, Albumin/Globulin Ratio 1.1 Current Medications Haloperidol Lactate (Haloperidol Lactate 5 Mg/Ml Vial) 2 mg IV Q4H PRN PRN PRN Reason: AGITATION Last Admin: 05/14/20 08:52 Dose: 2 mg Documented by: Sodium Chloride () 1,000 mls @ 150 mls/hr IV .Q6H40M ANIRUDH Last Infusion: 05/14/20 11:05 Dose: Infused Documented by: Pantoprazole Sodium 40 mg/ (Sodium Chloride) 110 mls @ 330 mls/hr IV Q12 ANIRUDH Last Infusion: 05/14/20 10:53 Dose: Infused Documented by: Sodium Chloride () 250 mls @ 15 mls/hr IV .[id number] PRN PRN Reason: Saline Flush Sodium Chloride () 250 mls @ 15 mls/hr IV .[id number] PRN PRN Reason: Additional IVPB Infusion Ondansetron HCl (Ondansetron 4 Mg/2 Ml Vial) 4 mg IV Q8H PRN PRN PRN Reason: NAUSEA Last Admin: 05/14/20 02:11 Dose: 4 mg Documented by: Sodium Chloride (0.9% Saline Lock 10 Ml Syringe) 10 - 40 ml IV UD PRN PRN Reason: SALINE FLUSH Assessment/Plan All Active Problems Upper GI bleed (Acute) Hypotension (Acute) Lactic acidosis (Acute) CATHLEEN (acute kidney injury) (Acute) Plan will be to perform an upper endoscopy on the patient. Risk benefits were reviewed with the daughter consents have been obtained. Risks include bleeding possible injury to the esophagus. All questions asked were answered.
--- NOTE | 2020-05-14 12:05 | IMM_PTH ---
PATIENT: GENET MCCORMICK LOC: [facility] U#:[id number] AGE/SX: 79/M ROOM: [facility] RE05/13/[address]: Dr. Michael Dc DO : 1940 BED: 1 DIS: 05/15/2020 SPEC #: [id number] RECD: 05/14/20 13:44 STATUS: RAFAEL REQ #: [id number] REINIER: 05/14/20 12:[address]: Wil Goldstein DEPT: IMMUNOHISTOCHEMISTRY RECD BY: Nell Brunson ENTERED: 05/14/20 13:45 SP TYPE: IMMUNO OTHR DR: MD Dr. Michael Garcia DO Dr. Paul Nielsen, MD Tissues: Stomach, NOS Procedures: H Pylori (initial) PHYSICIAN & INSTITUTION [place] [id number] SPECIMEN INFORMATION: Tissue Source: Antrum biopsy Clinical Info: GI bleed Specimen Number: [id number] CPT code: 50347 METHODOLOGY: Deparaffinized sections of prefer/formalin-fixed tissue or PAP/DQ stained slides are incubated with monoclonal/polyclonal antibodies/oligonucleotide probes. Localization is made via biotin free immunoperoxidase method. Appropriate controls are performed and reacted as expected. Results on target cell population are indicated in the following table: RESULTS: ANTIBODY / CLONE RESULT H Pylori (polyclonal) negative These tests were developed and their performance characteristics determined by [facility]. They may not have been cleared or approved by the U.S. Food and Drug Administration. The FDA has determined that such clearance or approval is not necessary. INTERPRETATION: Antrum, biopsy: Negative for Helicobacter pylori organisms. AM:michelle 05/15/2020
--- NOTE | 2020-05-14 12:05 | EGD_PTH ---
PATIENT: GENET MCCORMICK LOC: [facility] U#:[id number] AGE/SX: 79/M ROOM: [facility] RE05/13/[address]: Dr. Michael Dc DO : 1940 BED: 1 DIS: 05/15/2020 SPEC #: [id number] RECD: 05/14/20 12:40 STATUS: RAFAEL REQ #: [id number] REINIER: 05/14/20 12:[address]: Wil Goldstein DEPT: SURGICAL PATHOLOGY RECD BY: Renee Handy ENTERED: 05/14/20 13:08 SP TYPE: EGD BIOPSY OTHR DR: MD Dr. Tony Serrano MD Dr. Mark Tereletsky, DO Dr. Paul Nielsen, MD Tissues: Gastric mucous membrane Procedures: Surgery Specimen Level IV Comments: @ Ordering doctor for SUIV edited from to @ by SAVI at 05/14/20 1345 @ Submitting doctor edited from to @ by SAVI at 05/14/20 1345 HEADER OPERATION: EGD ([facility] [place] PRE-OP DIAGNOSIS: GI bleed TISSUE SUBMITTED: Antrum biopsy for H. pylori and path MICROSCOPIC DIAGNOSIS Antrum, biopsy: Minimal gastritis. See microscopic description and comment. COLBY:michelle 05/15/2020 COMMENT The results of immunohistochemistry for Helicobacter pylori will be reported separately ([id number]). MICROSCOPIC DESCRIPTION Slides are reviewed. The specimen shows fragments of gastric mucosa with chronic inflammatory cell infiltrates in the lamina propria consisting of lymphocytes and plasma cells, consistent with minimal chronic gastritis. GROSS DESCRIPTION Received in fixative is one container labeled with the patient's name and designated antral biopsy. The specimen consists of one irregular fragment of light tate soft tissue that measures 0.3 x 0.3 x 0.1 cm. The specimen is totally submitted in one cassette. / COLBY:michelle 05/14/20 TC:[address] [facility]: [id number]
--- NOTE | 2020-05-14 12:25 | OP.EGD_ITS ---
Patient Name: Ramesh Leyva Procedure Date: 05/14/2020 11:54 AM Date of : 1940 Age: 79 Procedure: Upper GI endoscopy Indications: Recent gastrointestinal bleeding Providers: Wil Goldstein MD Medicines: See the Anesthesia note for documentation of the administered medications Patient Profile: This is an 79 year old male. Refer to note in patient chart for documentation of history and physical. Complications: No immediate complications. Procedure: Pre-Anesthesia Assessment: - Prior to the procedure, a History and Physical was performed, and patient medications and allergies were reviewed. The patient's tolerance of previous anesthesia was also reviewed. The risks and benefits of the procedure and the sedation options and risks were discussed with the patient. All questions were answered, and informed consent was obtained. Prior Anticoagulants: The patient has taken no previous anticoagulant or antiplatelet agents. ASA Grade Assessment: III - A patient with severe systemic disease. After reviewing the risks and benefits, the patient was deemed in satisfactory condition to undergo the procedure. After obtaining informed consent, the endoscope was passed under direct vision. Throughout the procedure, the patient's blood pressure, pulse, and oxygen saturations were monitored continuously. The Endoscope was introduced through the mouth, and advanced to the second part of duodenum. The upper GI endoscopy was accomplished without difficulty. The patient tolerated the procedure well. Scope In: 12:11:13 PM Scope Out: 12:20:14 PM Total Procedure Duration Time 0 hours 9 minutes 1 second Findings: The esophagus and gastroesophageal junction were examined with white light from a forward view and retroflexed position. There were esophageal mucosal changes secondary to established long-segment Evans's disease. These changes involved the mucosa extending to the Z-line (38 cm from the incisors). Scattered islands of salmon-colored mucosa were present at 38 cm and scattered islands of salmon-colored mucosa were present from 22 to 38 cm. The maximum longitudinal extent of these esophageal mucosal changes was 14 cm in length. No biopsies or other specimens were collected for this exam. Hematin (altered blood/yvtjda-bhpxbg-jxnn material) was found in the entire examined stomach. Biopsies were taken with a cold forceps for Helicobacter pylori testing. The examined duodenum was normal. No biopsies or other specimens were collected for this exam. 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 No specimens collected. - Hematin (altered blood/hnabmx-oqvhbq-bnte material) in the entire stomach. Biopsied. - Normal examined duodenum. No specimens collected. Recommendation: - Return patient to [facility] for ongoing care. - Advance diet as tolerated. - Use Protonix (pantoprazole) 80 mg IV daily. - Continue present medications. Procedure Code(s): --- Professional --- 17050, Esophagogastroduodenoscopy, flexible, transoral; with biopsy, single or multiple Diagnosis Code(s): --- Professional --- K22.70, Evans's esophagus without dysplasia K92.2, Gastrointestinal hemorrhage, unspecified CPT copyright 2017 [employer]. All rights reserved. The codes documented in this report are preliminary and upon global manager review may be revised to meet current compliance requirements. MD Wil Saxena MD 05/14/2020 12:25:41 PM This report has been signed electronically. Number of Addenda: 0 Note Initiated On: 05/14/2020 11:54 AM
--- NOTE | 2020-05-14 12:26 | OP.CCLET_ITS ---
05/14/2020 Tony Corbin MD Re : Upper GI endoscopy procedure for Ramesh Leyva Dear Dr. Corbin This procedure was performed on Thursday, May 14, 2020. 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 No specimens collected. - Hematin (altered blood/flfdzh-bbgmbs-rxwq material) in the entire stomach. Biopsied. - Normal examined duodenum. No specimens collected. Recommendations : - Return patient to [facility] for ongoing care. - Advance diet as tolerated. - Use Protonix (pantoprazole) 80 mg IV daily. - Continue present medications. My findings are described in the full procedure note, which is enclosed. If I can be of further assistance, please feel free to contact me at Doctor phone number(s): , Fax: [phone], Work: . Sincerely, MD Wil Saxena MD 05/14/2020 12:25:41 PM This report has been signed electronically.
[2020-05-14] MEDS: 0.9% Saline Lock 10 ML Syringe IV ×2 (13:21→17:47)
--- NOTE | 2020-05-14 13:29 | NURSING ---
Student nurse documentation reviewed.
--- NOTE | 2020-05-14 15:31 | PN_ITS ---
Patient Problems: Active and Suspected Problems Upper GI bleed (Acute) Hypotension (Acute) Lactic acidosis (Acute) Subjective: Patient is an 79 y/o male who is lying in bed, and is A&O x1. Patient was non compliant with requests nor was he able to communicate any concerns during my evaluation. Objective: 05/14/20 11:12 Interface Orders SARS-CoV-2 Antigen (Rapid) - Final Laboratory Results 05/13/20 05/13/20 05/13/20 18:35 18:35 18:35 WBC 8.2 RBC 4.47 L Hgb 14.4 Hct 43.5 MCV 97.3 H MCH 32.2 H MCHC 33.1 RDW Std Deviation 52.5 H RDW Coeff of Mindy 14.6 Plt Count 100 L MPV 10.0 Immature Gran % (Auto) 0.200 Neut % (Auto) 84.9 H Lymph % (Auto) 11.1 L [place] % (Auto) 3.6 Eos % (Auto) 0.0 Baso % (Auto) 0.2 Absolute Neuts (auto) 7.0 Absolute Lymphs (auto) 0.91 Nucleated RBC % 0 PT 15.8 H INR 1.3 APTT 37.0 H Sodium 141 Potassium 3.4 L Chloride 106 Carbon Dioxide 26.0 Anion Gap 9 BUN 46 H Creatinine 2.06 H Estim Creat Clear Calc 29.53 Est GFR (MDRD) Af Amer 40 L Est GFR (MDRD) Non-Af 33 L BUN/Creatinine Ratio 22.3 H Glucose 152 H Lactic Acid Calcium 8.7 Total Bilirubin 0.70 AST 16 ALT 20 Alkaline Phosphatase 56 Troponin I < 0.015 Total Protein 7.9 Albumin 4.1 Globulin 3.8 Albumin/Globulin Ratio 1.1 Blood Type Antibody Screen 05/13/20 05/13/20 05/13/20 18:35 18:35 21:52 WBC RBC Hgb 13.4 Hct 41.2 MCV MCH MCHC RDW Std Deviation RDW Coeff of Mindy Plt Count MPV Immature Gran % (Auto) Neut % (Auto) Lymph % (Auto) [place] % (Auto) Eos % (Auto) Baso % (Auto) Absolute Neuts (auto) Absolute Lymphs (auto) Nucleated RBC % PT INR APTT Sodium Potassium Chloride Carbon Dioxide Anion Gap BUN Creatinine Estim Creat Clear Calc Est GFR (MDRD) Af Amer Est GFR (MDRD) Non-Af BUN/Creatinine Ratio Glucose Lactic Acid 3.1 H* Calcium Total Bilirubin AST ALT Alkaline Phosphatase Troponin I Total Protein Albumin Globulin Albumin/Globulin Ratio Blood Type AB POSITIVE Antibody Screen NEGATIVE 05/13/20 05/14/20 05/14/20 23:11 01:10 05:38 WBC 6.5 RBC 3.84 L Hgb 13.4 12.3 L Hct 42.7 38.1 L MCV 99.2 H MCH 32.0 MCHC 32.3 RDW Std Deviation 53.4 H RDW Coeff of Mindy 14.6 Plt Count 82 L MPV 10.7 Immature Gran % (Auto) 0.300 Neut % (Auto) 78.6 H Lymph % (Auto) 15.4 L [place] % (Auto) 5.5 Eos % (Auto) 0.0 Baso % (Auto) 0.2 Absolute Neuts (auto) 5.1 Absolute Lymphs (auto) 1.00 Nucleated RBC % 0 PT INR APTT Sodium Potassium Chloride Carbon Dioxide Anion Gap BUN Creatinine Estim Creat Clear Calc Est GFR (MDRD) Af Amer Est GFR (MDRD) Non-Af BUN/Creatinine Ratio Glucose Lactic Acid 2.7 H* Calcium Total Bilirubin AST ALT Alkaline Phosphatase Troponin I Total Protein Albumin Globulin Albumin/Globulin Ratio Blood Type Antibody Screen 05/14/20 05/14/20 05:38 05:38 WBC RBC Hgb Hct MCV MCH MCHC RDW Std Deviation RDW Coeff of Mindy Plt Count MPV Immature Gran % (Auto) Neut % (Auto) Lymph % (Auto) [place] % (Auto) Eos % (Auto) Baso % (Auto) Absolute Neuts (auto) Absolute Lymphs (auto) Nucleated RBC % PT 16.7 H INR 1.4 APTT Sodium 146 H Potassium 3.1 L Chloride 113 H Carbon Dioxide 25.0 Anion Gap 8 BUN 56 H Creatinine 1.45 H Estim Creat Clear Calc 41.95 Est GFR (MDRD) Af Amer 60 Est GFR (MDRD) Non-Af 50 L BUN/Creatinine Ratio 38.6 H Glucose 137 H Lactic Acid Calcium 8.0 L Total Bilirubin 0.40 AST 22 ALT 18 Alkaline Phosphatase 44 L Troponin I Total Protein 6.4 Albumin 3.3 Globulin 3.1 Albumin/Globulin Ratio 1.1 Blood Type Antibody Screen Vitals/I&O's: Vital Signs Temp Pulse Resp BP Pulse Ox 98.1 F 91 17 115/60 94 05/14/20 13:15 05/14/20 14:57 05/14/20 13:47 05/14/20 13:15 05/14/20 13:15 Oxygen Flow Rate (L/min) 2 Oxygen Delivery Method Room Air Weight: 167 lb 12.348 oz Body Mass Index (BMI) 24.0 Intake and Output for Last 24 Hours 05/12/20 05/13/20 05/14/20 23:59 23:59 23:59 Intake Total 1255 / 1255 2079 Balance 1255 / 1255 2079 General: Confused, Disoriented, Non-Cooperative HEENT: Atraumatic, PERRLA, EOMI, Normocephalic Neck: Supple, No JVD, Negative Carotid Bruits Lungs: Clear to auscultation, Normal air movement Cardiovascular: Regular rate, No murmurs Abdomen: Bowel Sounds Present, Soft, Non Tender Extremities: No edema, Capillary Refill Less than 3 Seconds Skin: No rashes, No breakdown Musculoskeletal: No Tenderness to Palpation of Joints or Extremities Neurological: - - Not able to asses due to patient confusion and inablity to comply with requests Psych/Mental Status: Agitated, Anxious Microbiology Past 72 Hours 05/14/20 11:12 Interface Orders SARS-CoV-2 Antigen (Rapid) - Final Laboratory Results 05/13/20 18:35: WBC 8.2, RBC 4.47 L, Hgb 14.4, Hct 43.5, MCV 97.3 H, MCH 32.2 H, MCHC 33.1, RDW Std Deviation 52.5 H, RDW Coeff of Mindy 14.6, Plt Count 100 L, MPV 10.0, Immature Gran % (Auto) 0.200, Neut % (Auto) 84.9 H, Lymph % (Auto) 11.1 L, [place] % (Auto) 3.6, Eos % (Auto) 0.0, Baso % (Auto) 0.2, Absolute Neuts (auto) 7.0, Absolute Lymphs (auto) 0.91, Nucleated RBC % 0 05/13/20 18:35: PT 15.8 H, INR 1.3, APTT 37.0 H 05/13/20 18:35: Sodium 141, Potassium 3.4 L, Chloride 106, Carbon Dioxide 26.0, Anion Gap 9, BUN 46 H, Creatinine 2.06 H, Estim Creat Clear Calc 29.53, Est GFR (MDRD) Af Amer 40 L, Est GFR (MDRD) Non-Af 33 L, BUN/Creatinine Ratio 22.3 H, Glucose 152 H, Calcium 8.7, Total Bilirubin 0.70, AST 16, ALT 20, Alkaline Phosphatase 56, Troponin I < 0.015, Total Protein 7.9, Albumin 4.1, Globulin 3.8, Albumin/Globulin Ratio 1.1 05/13/20 18:35: Lactic Acid 3.1 H* 05/13/20 18:35: Blood Type AB POSITIVE, Antibody Screen NEGATIVE 05/13/20 21:52: Hgb 13.4, Hct 41.2 05/13/20 23:11: Lactic Acid 2.7 H* 05/14/20 01:10: Hgb 13.4, Hct 42.7 05/14/20 05:38: WBC 6.5, RBC 3.84 L, Hgb 12.3 L, Hct 38.1 L, MCV 99.2 H, MCH 32.0, MCHC 32.3, RDW Std Deviation 53.4 H, RDW Coeff of Mindy 14.6, Plt Count 82 L , MPV 10.7, Immature Gran % (Auto) 0.300, Neut % (Auto) 78.6 H, Lymph % (Auto) 15.4 L, [place] % (Auto) 5.5, Eos % (Auto) 0.0, Baso % (Auto) 0.2, Absolute Neuts (auto) 5.1, Absolute Lymphs (auto) 1.00, Nucleated RBC % 0 05/14/20 05:38: PT 16.7 H, INR 1.4 05/14/20 05:38: Sodium 146 H, Potassium 3.1 L, Chloride 113 H, Carbon Dioxide 25.0, Anion Gap 8, BUN 56 H, Creatinine 1.45 H, Estim Creat Clear Calc 41.95, Est GFR (MDRD) Af Amer 60, Est GFR (MDRD) Non-Af 50 L, BUN/Creatinine Ratio 38.6 H, Glucose 137 H, Calcium 8.0 L, Total Bilirubin 0.40, AST 22, ALT 18, Alkaline Phosphatase 44 L, Total Protein 6.4, Albumin 3.3, Globulin 3.1, Albumin/Globulin Ratio 1.1 Current Medications Acetaminophen (Acetaminophen 325 Mg Tablet) 650 mg PO Q6H PRN PRN PRN Reason: Pain 1-10 or Fever Haloperidol Lactate (Haloperidol Lactate 5 Mg/Ml Vial) 2 mg IV Q4H PRN PRN PRN Reason: AGITATION Last Admin: 05/14/20 13:21 Dose: 2 mg Documented by: Pantoprazole Sodium 40 mg/ (Sodium Chloride) 110 mls @ 330 mls/hr IV Q12 ANIRUDH Last Infusion: 05/14/20 10:53 Dose: Infused Documented by: Sodium Chloride () 250 mls @ 15 mls/hr IV .[id number] PRN PRN Reason: Saline Flush Sodium Chloride () 250 mls @ 15 mls/hr IV .[id number] PRN PRN Reason: Additional IVPB Infusion Lorazepam (Lorazepam 0.5 Mg Tablet) 0.5 mg PO 4X/DAY PRN PRN PRN Reason: ANXIETY Memantine (Memantine Hydrochloride 10 Mg Tablet) 10 mg PO BID ANIRUDH Mirtazapine (Mirtazapine 15 Mg Tablet) 15 mg PO QHS ANIRUDH Ondansetron HCl (Ondansetron 4 Mg/2 Ml Vial) 4 mg IV Q8H PRN PRN PRN Reason: NAUSEA Last Admin: 05/14/20 02:11 Dose: 4 mg Documented by: Quetiapine Fumarate (Quetiapine 25 Mg Tablet) 50 mg PO TID ANIRUDH Sodium Chloride (0.9% Saline Lock 10 Ml Syringe) 10 - 40 ml IV UD PRN PRN Reason: SALINE FLUSH Last Admin: 05/14/20 13:21 Dose: 10 ml Documented by: STROKE Vital Signs/Narrative: Vital Signs Temp Pulse Resp BP Pulse Ox 05/14/20 14:57 91 05/14/20 13:47 94 17 05/14/20 13:15 98.1 F 99 17 115/60 94 05/14/20 12:55 99.2 F H 94 20 H 120/83 H 94 05/14/20 12:45 88 20 H 103/78 97 05/14/20 12:40 84 16 90/58 L 97 05/14/20 12:30 83 20 H 90/62 97 05/14/20 12:25 96.7 F L 73 20 H 77/48 L 95 Medical Necessity - Tobacco Use Smoking Status: Never smoker Assessment/Plan All Active Problems Upper GI bleed (Acute) Hypotension (Acute) Lactic acidosis (Acute) CATHLEEN (acute kidney injury) (Acute) Patient is an 79 year old male who presented to the ED with a chief complaint of vomiting blood. Patient was admitted to the PCU for suspected UGIB, Hypotensin secondary to blood loss, Lactic acidosis, and CATHLEEN. Patients past medical history of dementia makes him very difficult to assess as he cannot provide any history or hold a conversation. 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 Patient will remain admitted overnight, anticipate discharge tomorrow. 1) UGIB Assessment - EGD revealed blood/coffee ground emesis - Hgb 12.3, down form admission - INR 1.4 - VS stable Plan - Increase Protonix to 80mg IV daily - Monitor CBC and BMP 2) Hypotension Assessment - Fluids repleted per IV hydration - 115/60, stable Plan - Continue to monitor 3) Lactic Acidosis Assessment - 2.7 as of 05/13/2020 Plan - Continue to monitor - Continue fluids PRN 4) CATHLEEN Assessment - 1.45. down trending Plan - Continue to monitor - Continue fluids PRN DVT Prophylaxis - SCD's Patient seen by Sadiq Beal PA-C under the supervision of Dr. Dc.
[2020-05-14] MEDS: LORazepam 0.5 MG Tablet PO (15:34)
[2020-05-14] MEDS: QUEtiapine 25 MG Tablet 50 MG PO (21:38)
[2020-05-14] MEDS: Memantine Hydrochloride 10 MG Tablet PO (21:38)
[2020-05-14] MEDS: Mirtazapine 15 MG Tablet PO (21:38)
[2020-05-15] VITALS (9 sets, daily range): BP systolic 92–142; BP diastolic 48–84; PULSE 86–118; RESP 16–18; TEMP 36.7–37; O2SAT 95–96
[2020-05-15] MEDS: Haloperidol Lactate 5 MG/ML Vial 2 MG IV (00:38)
--- NOTE | 2020-05-15 01:28 | NURSING ---
1230: Patient becoming increasingly agitated. Attempting to get out of bed. PRN medications given. See APR 114: Patient extremely agitated. Threatening to cause harm to staff and physically hitting, kicking, and pinching staff. Dr. Vogel notified of patient's condition and ativan 0.5mg PO switched to 0.5mg IV. Medication given to patient. RN at bedside. Bed alarm on and patient being reoriented to surroundings.
[2020-05-15] MEDS: LORazepam 2 MG/ML Syringe 0.5 MG IV (01:40)
[2020-05-15] MEDS: QUEtiapine 25 MG Tablet 50 MG PO ×2 (05:15→15:13)
--- NOTE | 2020-05-15 05:55 | EKG12_ITS ---
Test Reason : DYSRHYTHMIA Blood Pressure : / mmHG Vent. Rate : 117 BPM Atrial Rate : 156 BPM P-R Int : 000 ms QRS Dur : 088 ms QT Int : 366 ms P-R-T Axes : 000 068 057 degrees QTc Int : 510 ms Atrial fibrillation Nonspecific ST abnormality Abnormal ECG When compared with ECG of 13-MAY-2020 18:40, MANUAL COMPARISON REQUIRED, DATA IS UNCONFIRMED Confirmed by CYN BONILLA, AVNI ([id number]), supervising editor trailer GUI FINCH ([id number]) on 05/16/2020 12:41:21 PM Referred By: CARROLL Confirmed By:NAVID ADDISON MD
[2020-05-15 06:49] LABS: Hematocrit 33.2 % (40-54); Hemoglobin 10.7 g/dL (13.0-16.5); POSITIVE COUNT YES
--- NOTE | 2020-05-15 08:30 | NURSING ---
pt bed exit going off, pt getting out of bed to go to the bathroom. up to bsc in bathroom with ax2. cochlear implant placed and pt is now able to respond when being talked to. pt had sm liquid bm. re-oriented as only oriented to self. back to bed. helped pt w/breakfast and changed iv drsg. supervisor wood crew now sitting with pt to help him eat breakfast.
--- NOTE | 2020-05-15 10:56 | DCINST_ITS ---
- Discharge Diagnoses Current Active Problems: Current Active and Chronic Problems History of dementia (Chronic) History of BPH (Chronic) History of hypertension (Chronic) History of psychiatric disorder (Chronic) History of gastroesophageal reflux (GERD) (Chronic) History of COPD (Chronic) Upper GI bleed (Acute) Hypotension (Acute) Lactic acidosis (Acute) You will use the following diet at home:: No restrictions Your food should be the consistency of: Regular Your liquids should be the consistency of: Regular/Thin Discharge Activity: Return to Normal Activity Allergies/Adverse Reactions: Allergies No Known Allergies Allergy (Verified 05/13/20 22:19) Medications to take at Discharge Acetaminophen [Tylenol] 650 mg PO Q6H PRN PRN 05/13/20 Cholecalciferol (Vitamin D3) [Vitamin D3] 5,000 unit PO DAILY 05/13/20 Cyanocobalamin (Vitamin B-12) [Vitamin B-12] 1,000 mcg PO DAILY 05/13/20 Famotidine [Acid-Pep] 20 mg PO BID 05/13/20 Folic Acid 1 mg PO DAILY 05/13/20 Gabapentin 300 mg PO QHS 05/13/20 Haloperidol [Haldol] 1 mg PO BID PRN 05/13/20 Lorazepam [Ativan] 0.5 mg PO 4X/DAY PRN PRN 05/13/20 Melatonin 3 mg PO QHS 05/13/20 Memantine HCl [Namenda] 10 mg PO BID 05/13/20 Mirtazapine [Remeron] 15 mg PO QHS 05/13/20 Multivitamin with Folic Acid [Tab-A-Namita Tablet] 400 mcg PO DAILY 05/13/20 Quetiapine Fumarate [Seroquel] 100 mg PO TID 05/13/20 Thiamine HCl [Vitamin B-1] 100 mg PO DAILY 05/13/20 Primary Care Physician: Tony Corbin MD [Primary Care Provider] - Please follow up with your Primary Care Physician in: Within the next two weeks Test Results: Test results from this visit will be discussed in further detail at your follow- up appointment, if applicable. Proposed Discharge Date: 05/15/20
--- NOTE | 2020-05-15 11:00 | ECHOCS_ITS ---
Reason For Study: Afib/Flutter Procedure This was a 2D Doppler, Color Flow transthoracic echocardiogram. The study was technically difficult. Contrast injection was performed. Patient was confused and trying to get out of bed during exam. Exam performed portable in patient room. Left Ventricle Normal LV size. Left ventricular systolic function is normal. The estimated ejection fraction is 75 %. No regional wall motion abnormalities noted. Right Ventricle Normal RV size. Normal systolic function. Atria Normal left atrium. Normal right atrium. Mitral Valve Mitral valve not well visualized. Tricuspid Valve The tricuspid valve is not well visualized. Aortic Valve The aortic valve is not well visualized. Pulmonic Valve The pulmonic valve is not well visualized. Great Vessels Normal aortic root. The pulmonary is not well visualized. Pericardium/Pleural No pericardial effusion. Medication Diluted definity 4ml given slow IV push to enhance endocardial definition. MMode/2D Measurements & Calculations LVIDd: 3.2 cm IVSd: 1.6 cm Ao root diam: 3.7 cm LVIDs: 2.5 cm LVPWd: 1.7 cm FS: 21.1 % LAV(MOD-sp4): 48.3 ml LA A4 area: 18.3 cm2 Doppler Measurements & Calculations MV E max nirmal: 78.9 cm/sec Ao V2 max: 92.9 cm/sec LV V1 max: 91.0 cm/sec Ao max P.5 mmHg LV V1 max P.3 mmHg PA V2 max: 121.3 cm/sec Interpretation Summary Normal LV size. Left ventricular systolic function is normal. The estimated ejection fraction is 75 %. Contrast injection was performed. Ordering Physician: Michael Dc Referring Physician: Tony Corbin Performed By: Selvin Christensen RCS
--- NOTE | 2020-05-15 11:05 | CASEMGMT ---
[facility] called [facility] and asked to speak with Lore. Per the temporary receptionist Lore was busy, but they are taking patient back and she will call [facility] back in a bit. Theodora Tavares BODY FINISHER ROLA
--- NOTE | 2020-05-15 11:09 | PHA.DC.MR ---
Pharmacy Service has performed discharge medication reconciliation for this patient. The patient's discharge medication list was reviewed for discrepancies and discrepancies were resolved. Home Medications Acetaminophen [Tylenol] 650 mg PO Q6H PRN PRN 05/13/20 Gabapentin 300 mg PO QHS 05/13/20 Haloperidol [Haldol] 1 mg PO BID PRN 05/13/20 Melatonin 3 mg PO QHS 05/13/20 Memantine HCl [Namenda] 10 mg PO BID 05/13/20 Mirtazapine [Remeron] 15 mg PO QHS 05/13/20 Multivitamin with Folic Acid [Tab-A-Namita Tablet] 400 mcg PO DAILY 05/13/20 Cholecalciferol (VIT D3) [Vitamin D] 2,000 unit PO DAILY #1 tablet 05/15/20 Lorazepam [Ativan] 0.5 mg PO 4X/DAY PRN PRN #14 tablet 05/15/20 Metoprolol Tartrate [Lopressor (beta ellis)] 12.5 mg PO BID #1 tablet 05/15/20
[2020-05-15] MEDS: 0.9% Saline Lock 10 ML Syringe IV (11:14)
[2020-05-15] MEDS: Memantine Hydrochloride 10 MG Tablet PO (11:14)
--- NOTE | 2020-05-15 11:51 | DCINST_ITS ---
- Discharge Diagnoses Current Active Problems: Current Active and Chronic Problems History of dementia (Chronic) History of BPH (Chronic) History of hypertension (Chronic) History of psychiatric disorder (Chronic) History of gastroesophageal reflux (GERD) (Chronic) History of COPD (Chronic) Upper GI bleed (Acute) Hypotension (Acute) Lactic acidosis (Acute) You will use the following diet at home:: No restrictions Your food should be the consistency of: Regular Your liquids should be the consistency of: Regular/Thin Discharge Activity: Return to Normal Activity Allergies/Adverse Reactions: Allergies No Known Allergies Allergy (Verified 05/13/20 22:19) Medications to take at Discharge Acetaminophen [Tylenol] 650 mg PO Q6H PRN PRN 05/13/20 Gabapentin 300 mg PO QHS 05/13/20 Haloperidol [Haldol] 1 mg PO BID PRN 05/13/20 Melatonin 3 mg PO QHS 05/13/20 Memantine HCl [Namenda] 10 mg PO BID 05/13/20 Mirtazapine [Remeron] 15 mg PO QHS 05/13/20 Multivitamin with Folic Acid [Tab-A-Namita Tablet] 400 mcg PO DAILY 05/13/20 Cholecalciferol (VIT D3) [Vitamin D] 2,000 unit PO DAILY #1 tablet 05/15/20 Cholecalciferol (VIT D3) [Vitamin D] 2,000 unit PO DAILY #30 tablet 05/15/20 Lorazepam [Ativan] 0.5 mg PO 4X/DAY PRN PRN #14 tablet 05/15/20 Metoprolol Tartrate [Lopressor (beta ellis)] 12.5 mg PO BID #1 tablet 05/15/20 Metoprolol Tartrate [Lopressor (beta ellis)] 12.5 mg PO DAILY #30 tablet 05/15/20 Pantoprazole Sodium [Protonix] 40 mg PO BID #60 tab 05/15/20 Quetiapine Fumarate [Seroquel] 25 mg PO TID #90 tablet 05/15/20 The following prescriptions were given: Lorazepam [Ativan] 0.5 mg PO 4X/DAY PRN PRN #14 tablet PRN Reason: Anxiety Prescription Printed Metoprolol Tartrate [Lopressor (beta ellis)] 12.5 mg PO BID #1 tablet Prescription Printed Metoprolol Tartrate [Lopressor (beta ellis)] 12.5 mg PO DAILY #30 tablet Prescription Printed Pantoprazole Sodium [Protonix] 40 mg PO BID #60 tab Prescription Printed Quetiapine Fumarate [Seroquel] 25 mg PO TID #90 tablet Prescription Printed Cholecalciferol (VIT D3) [Vitamin D] 2,000 unit PO DAILY #1 tablet Cholecalciferol (VIT D3) [Vitamin D] 2,000 unit PO DAILY #30 tablet Prescription Printed Primary Care Physician: Tony Corbin MD [Primary Care Provider] - Please follow up with your Primary Care Physician in: Within the next two weeks Test Results: Test results from this visit will be discussed in further detail at your follow- up appointment, if applicable. Proposed Discharge Date: 05/15/20
[2020-05-15 12:42] LABS: Hematocrit 31.1 % (40-54); Hemoglobin 10.4 g/dL (13.0-16.5); POSITIVE COUNT YES
--- NOTE | 2020-05-15 12:54 | DS.PCM_ITS ---
Discharge Date and Diagnosis - Problem List Patient Problems: Active and Suspected Problems Upper GI bleed (Acute) Hypotension (Acute) Lactic acidosis (Acute) Date of Admission: 05/13/20 Date of Discharge: 05/15/20 - Primary Discharge Diagnosis Acute Problems: Active Problems Upper GI bleed (Acute) Hypotension (Acute) Lactic acidosis (Acute) - Secondary Discharge Diagnosis Chronic Problems: Chronic Problems History of dementia (Chronic) History of BPH (Chronic) History of hypertension (Chronic) History of psychiatric disorder (Chronic) History of gastroesophageal reflux (GERD) (Chronic) History of COPD (Chronic) Hospital Course and Treatment Imaging Results: 05/15/20 11:00 Echo Complete [ECHO] Routine Procedures: 2-D Echocardiogram, EGD Summary of Care Provided: Patient is an 79 year old male who presented to the ED on 05/13/2020 with a chief complaint of vomiting blood. Patient was admitted to the PCU for suspected UGIB, Hypotensin secondary to blood loss, Lactic acidosis, and CATHLEEN. Patients past medical history of dementia makes him very difficult to assess as he cannot provide any history or hold a conversation. 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 Patient's CBC is significant for anemia with a hemoglobin currently at 10.4. There is no evidence of an acute bleed per physical exam; no rigid/distended abdomen, no hematuria, no blood in stool. Given the results of my physical exam coupled with those of the EGD I believe patient is stable for discharge, despite low hemoglobin. Patient's ED admission was significant for atrial fibrillation. After discussion with patient's daughter, it was decided that it would be prudent for the patient receive an echocardiogram while admitted, as well as rate control via beta-ellis on discharge. Patient's CHADS-VASC2 score is 3, however due to patient's low hemoglobin and history of bleed he will not be anticoagulated. Echocardiogram was unremarkable. Patient will be discharged later this afternoon. 1) UGIB Assessment - EGD revealed blood/coffee ground emesis - Hgb 10.4, down form admission - INR 1.4 - VS stable Plan - Patient presentation stable - Protonix 40 mg p.o. twice daily initiated at discharge 2) Hypotension Assessment - Fluids repleted per IV hydration - 95/68, stable Plan - Continue to monitor 3) Lactic Acidosis Assessment - 2.7 as of 05/13/2020 Plan - Stable 4) CATHLEEN Assessment - 1.45. down trending Plan - Continue to monitor - Continue fluids PRN 5) A-FIB Assessment - Demonstrated in the ED on EKG - CHADS-VASC2 score of 3 - Not a candidate for anticoagulation given history of recent bleed and low hemoglobin - Echocardiogram results pending Plan -Rate control per Lopressor on discharge DVT Prophylaxis - SCD's Patient seen by Sadiq Beal PA-C under the supervision of Dr. Dc. Patient Problems: Active and Suspected Problems Upper GI bleed (Acute) Hypotension (Acute) Lactic acidosis (Acute) Subjective: Patient is an 79 y/o male who is lying in bed, and is A&O x2. Patient was non compliant with requests nor was he able to communicate any concerns during my evaluation. - Physical Exam Vitals/I&O's: Vital Signs Temp Pulse Resp BP Pulse Ox 98.4 F 100 18 95/68 95 05/15/20 12:45 05/15/20 12:45 05/15/20 12:45 05/15/20 12:45 05/15/20 12:45 Oxygen Flow Rate (L/min) 2 Oxygen Delivery Method Room Air Weight: 167 lb 12.348 oz Body Mass Index (BMI) 24.0 Intake and Output for Last 24 Hours 05/13/20 05/14/20 05/15/20 23:59 23:59 23:59 Intake Total 1255 / 1255 2480 / 2480 179.17 / 179.17 Balance 1255 / 1255 2480 / 2480 179.17 / 179.17 General: Confused, Disoriented, - - Due to patient's dementia is fusion/disorientation may be chronic. HEENT: Atraumatic, PERRLA, EOMI, Normocephalic Neck: Supple, No JVD, Negative Carotid Bruits Lungs: Clear to auscultation, Normal air movement Cardiovascular: Regular rate, No murmurs Abdomen: Bowel Sounds Present, Soft, Non Tender Extremities: No edema, Capillary Refill Less than 3 Seconds Skin: No rashes, No breakdown Musculoskeletal: No Tenderness to Palpation of Joints or Extremities Neurological: - - Unable to do neurological exam due to patient's noncompliance with requests Psych/Mental Status: Normal Affect Microbiology Past 72 Hours 05/14/20 11:12 Interface Orders SARS-CoV-2 Antigen (Rapid) - Final Laboratory Results 05/15/20 05:55: Hgb 10.7 L, Hct 33.2 L 05/15/20 12:24: Hgb 10.4 L, Hct 31.1 L 05/15/20 12:24: Sodium Pending, Potassium Pending, Chloride Pending, Carbon Dioxide Pending, Anion Gap Pending, BUN Pending, Creatinine Pending, Est GFR (MDRD) Af Amer Pending, Est GFR (MDRD) Non-Af Pending, BUN/Creatinine Ratio Pending, Glucose Pending, Calcium Pending Current Medications Acetaminophen (Acetaminophen 325 Mg Tablet) 650 mg PO Q6H PRN PRN PRN Reason: Pain 1-10 or Fever Haloperidol Lactate (Haloperidol Lactate 5 Mg/Ml Vial) 2 mg IV Q4H PRN PRN PRN Reason: AGITATION Last Admin: 05/15/20 00:38 Dose: 2 mg Documented by: Sodium Chloride () 250 mls @ 15 mls/hr IV .[id number] PRN PRN Reason: Saline Flush Sodium Chloride () 250 mls @ 15 mls/hr IV .[id number] PRN PRN Reason: Additional IVPB Infusion Pantoprazole Sodium 80 mg/ (Sodium Chloride) 100 mls @ 10 mls/hr CONT INF Q10H [facility] Last Infusion: 05/15/20 10:45 Dose: 0 mls/hr Documented by: Lorazepam (Lorazepam 2 Mg/Ml Syringe) 0.5 mg IV Q6H PRN PRN PRN Reason: anxiety, agitation Last Admin: 05/15/20 01:40 Dose: 0.5 mg Documented by: Memantine (Memantine Hydrochloride 10 Mg Tablet) 10 mg PO BID [facility] Last Admin: 05/15/20 11:14 Dose: 10 mg Documented by: Mirtazapine (Mirtazapine 15 Mg Tablet) 15 mg PO QHS [facility] Last Admin: 05/14/20 21:38 Dose: 15 mg Documented by: Ondansetron HCl (Ondansetron 4 Mg/2 Ml Vial) 4 mg IV Q8H PRN PRN PRN Reason: NAUSEA Last Admin: 05/14/20 02:11 Dose: 4 mg Documented by: Quetiapine Fumarate (Quetiapine 25 Mg Tablet) 50 mg PO TID [facility] Last Admin: 05/15/20 05:15 Dose: 50 mg Documented by: Sodium Chloride (0.9% Saline Lock 10 Ml Syringe) 10 - 40 ml IV UD PRN PRN Reason: SALINE FLUSH Last Admin: 05/15/20 11:14 Dose: 10 ml Documented by: Discharge Activity: Return to Normal Activity Home Medications: Medications to take at Discharge Acetaminophen [Tylenol] 650 mg PO Q6H PRN PRN 05/13/20 Gabapentin 300 mg PO QHS 05/13/20 Haloperidol [Haldol] 1 mg PO BID PRN 05/13/20 Melatonin 3 mg PO QHS 05/13/20 Memantine HCl [Namenda] 10 mg PO BID 05/13/20 Mirtazapine [Remeron] 15 mg PO QHS 05/13/20 Multivitamin with Folic Acid [Tab-A-Namita Tablet] 400 mcg PO DAILY 05/13/20 Cholecalciferol (VIT D3) [Vitamin D] 2,000 unit PO DAILY #1 tablet 05/15/20 Cholecalciferol (VIT D3) [Vitamin D] 2,000 unit PO DAILY #30 tablet 05/15/20 Lorazepam [Ativan] 0.5 mg PO 4X/DAY PRN PRN #14 tablet 05/15/20 Metoprolol Tartrate [Lopressor (beta ellis)] 12.5 mg PO BID #1 tablet 05/15/20 Metoprolol Tartrate [Lopressor (beta ellis)] 12.5 mg PO DAILY #30 tablet 05/15/20 Pantoprazole Sodium [Protonix] 40 mg PO BID #60 tab 05/15/20 Quetiapine Fumarate [Seroquel] 25 mg PO TID #90 tablet 05/15/20 Following Prescriptions Were Given to Patient: Lorazepam [Ativan] 0.5 mg PO 4X/DAY PRN PRN #14 tablet PRN Reason: Anxiety Prescription Printed Metoprolol Tartrate [Lopressor (beta ellis)] 12.5 mg PO BID #1 tablet Prescription Printed Metoprolol Tartrate [Lopressor (beta ellis)] 12.5 mg PO DAILY #30 tablet Prescription Printed Pantoprazole Sodium [Protonix] 40 mg PO BID #60 tab Prescription Printed Quetiapine Fumarate [Seroquel] 25 mg PO TID #90 tablet Prescription Printed Cholecalciferol (VIT D3) [Vitamin D] 2,000 unit PO DAILY #1 tablet Cholecalciferol (VIT D3) [Vitamin D] 2,000 unit PO DAILY #30 tablet Prescription Printed Primary Care Physician: Tony Corbin MD [Primary Care Provider] - Please follow up with your Primary Care Physician in: Within the next two weeks Disposition: [facility] Living/Non-Skill [facility] Minutes spent on discharge:: 35 Patient Condition:: Stable Medical Necessity - Tobacco Use Smoking Status: Never smoker Meaningful Use Info Meaningful Use Diagnoses (Choose all that apply): None applicable
[2020-05-15 13:21] LABS: Anion Gap 8 (5-15); BUN 36 mg/dL (7-18); BUN/Creat Ratio 36.4 RATIO (10-20); Calcium,Total 7.9 mg/dL (8.5-10.1); Chloride 115 mmol/L (98-107); Creatinine, Serum 0.99 mg/dL (0.70-1.30); EST Glomerular Filtration Rate 77 mL/min (>60); Est Glom Filt Rate - Afr Amer 93 mL/min (>60); Estimated Creatinine Clearance 61.45 ml/min; Glucose 107 mg/dL (74-106); Potassium 2.9 mmol/L (3.5-5.1); Sodium Level 145 mmol/L (136-145)
[2020-05-15] MEDS: Potassium Chloride Oral Tablet 20 MEQ PO (14:07)
[2020-05-15] MEDS: Potassium Chloride Oral Tablet 20 MEQ 40 MEQ PO (15:13)
[2020-05-15] MEDS: LORazepam 1 MG Tablet PO (15:14)
--- NOTE | 2020-05-15 15:28 | CASEMGMT ---
[facility] faxed d/c instructions and med list to [facility]. [facility] wrote on the fax face sheet that we are waiting on echo results and that will determine whether he returns today or tomorrow. [facility]B gave d/c instructions and med list to board of education secretary and they were put in patient's envelope. Theodora Tavares MSW ROLA
--- NOTE | 2020-05-15 18:25 | NURSING ---
Report called to Lore at [facility].
--- NOTE | 2020-05-15 18:45 | NURSING ---
Cochlear device and vessel slag worker sent back with patient and daughter to [facility]
== END 2020-05-15 18:33 | disposition home or self-care (01) | DRG 378 ==
LOC: ED 20:17 → PCU 20:44
PROVIDERS: Physician Assistant; Surgery; Admitting Provider Family Medicine; Emergency Provider Emergency Medicine; PCP Family Medicine; Visit Provider Internal Medicine
PROC: 0DJ08ZZ Inspection of Upper Intestinal Tract, Via Natural or Artificial Opening Endoscopic (ICD-10-PCS; CPT 43235; principal; 2020-05-14 12:00)
DX: K29.71 Gastritis, unspecified, with bleeding (principal); E87.2 Acidosis; N17.9 Acute kidney failure, unspecified; D62 Acute posthemorrhagic anemia; K92.0 Hematemesis; K22.70 Barrett's esophagus without dysplasia; I95.9 Hypotension, unspecified; F03.90 Unspecified dementia, unspecified severity, without behavioral disturbance, psychotic disturbance, mood disturbance, and anxiety; I10 Essential (primary) hypertension; I48.91 Unspecified atrial fibrillation; J44.9 Chronic obstructive pulmonary disease, unspecified; N40.0 Benign prostatic hyperplasia without lower urinary tract symptoms; K21.9 Gastro-esophageal reflux disease without esophagitis; Z79.899 Other long term (current) drug therapy
CPT/HCPCS: 36415; 80048; 80053; 83605; 84484; 85014; 85018; 85025; 85610; 85730; 86850; 86900; 86901; 87426; 88305; 88342; 93005; 93306; 99285; J7030; Q9957; A4216; C8929; J2405; J3490

== ENCOUNTER → 2020-05-20 04:00 | Outpatient (REF) | payer MEDICARE, SELFPAY ==
[2020-05-14 10:56] VITALS: BMI 24.0
[2020-05-20 07:20] LABS: Hematocrit 31.8 % (40-54); Hemoglobin 10.9 g/dL (13.0-16.5); Mean Corp Hgb Conc 34.3 g/dL (32-36); Mean Corpuscular Hgb 32.2 pg (27.0-32.0); Mean Corpuscular Volume 94.1 fL (80-94); Mean Platelet Vol. 10.6 fl (6.2-12.0); Platelet Count 129 K/mm3 (150-450); RBC Distribution Width CV 13.8 % (11.6-14.6); RBC Distribution Width SD 47.6 fl (35.1-43.9); Red Blood Count 3.38 M/mm3 (4.6-6.2); White Blood Count 5.3 K/mm3 (4.4-11.0)
[2020-05-20 07:41] LABS: AST(SGOT) 15 U/L (15-37); Alanine Aminotransfer ALT/SGPT 25 U/L (16-61); Albumin, Serum 3.2 g/dL (3.2-5.0); Alkaline Phosphatase 50 U/L (45-117); Anion Gap 7 (5-15); BUN 10 mg/dL (7-18); BUN/Creat Ratio 11.8 RATIO (10-20); Calcium,Total 8.2 mg/dL (8.5-10.1); Chloride 111 mmol/L (98-107); Creatinine, Serum 0.85 mg/dL (0.70-1.30); EST Glomerular Filtration Rate 92 mL/min (>60); Est Glom Filt Rate - Afr Amer 111 mL/min (>60); Globulin 3.3 g/dL (2.2-4.2); Glucose 105 mg/dL (74-106); Protein, Total 6.5 g/dL (6.4-8.2); Sodium Level 143 mmol/L (136-145)
== END ==
LOC: OLS.BROOKB 04:00
PROVIDERS: PCP Family Medicine; Visit Provider Family Medicine
DX: D64.9 Anemia, unspecified (principal); K92.2 Gastrointestinal hemorrhage, unspecified; E87.6 Hypokalemia
CPT/HCPCS: 36415; 80053; 85027

== ENCOUNTER → 2020-05-29 05:00 | Outpatient (REF) | payer MEDICARE, SELFPAY ==
[2020-05-14 10:56] VITALS: BMI 24.0
[2020-05-29 08:23] LABS: Absolute Lymphocyte Count 1.39 X10^3/uL (0.83-4.51); Absolute Neutrophil Count 2.2 X10^3/uL (2.0-7.7); Basophil# 0.03 X10^3/uL; Basophil% 0.7 % (0-1); Eosinophil# 0.08 X10^3/uL; Eosinophils% 1.9 % (0-5); Hematocrit 31.1 % (40-54); Hemoglobin 9.8 g/dL (13.0-16.5); Lymphocyte # 1.39 X10^3/ul (4.0); Lymphocyte % 33.7 % (19-41); Mean Corp Hgb Conc 31.5 g/dL (32-36); Mean Corpuscular Hgb 31.4 pg (27.0-32.0); Mean Corpuscular Volume 99.7 fL (80-94); Mean Platelet Vol. 10.3 fl (6.2-12.0); Monocyte# 0.38 X10^3/uL; Monocyte% 9.2 % (0-10); NRBC Flagged by Analyzer 0 % (0-5); Neutrophil # 2.23 X10^3/uL (2.7-7.7); Neutrophil % 54.3 % (47-70); Platelet Count 169 K/mm3 (150-450); RBC Distribution Width CV 14.4 % (11.6-14.6); RBC Distribution Width SD 51.3 fl (35.1-43.9); Red Blood Count 3.12 M/mm3 (4.6-6.2); White Blood Count 4.1 K/mm3 (4.4-11.0)
[2020-05-29 08:26] LABS: Anion Gap 5 (5-15); BUN 13 mg/dL (7-18); BUN/Creat Ratio 15.3 RATIO (10-20); Calcium,Total 8.7 mg/dL (8.5-10.1); Chloride 109 mmol/L (98-107); Creatinine, Serum 0.85 mg/dL (0.70-1.30); EST Glomerular Filtration Rate 92 mL/min (>60); Est Glom Filt Rate - Afr Amer 112 mL/min (>60); Glucose 98 mg/dL (74-106); Sodium Level 141 mmol/L (136-145)
== END ==
LOC: OLS.BROOKB 05:00
PROVIDERS: PCP Family Medicine; Visit Provider Family Medicine
DX: D64.9 Anemia, unspecified (principal); Z79.899 Other long term (current) drug therapy
CPT/HCPCS: 36415; 80048; 85025

== ENCOUNTER → 2020-06-06 05:15 | Outpatient (REF) | payer MEDICARE, SELFPAY ==
[2020-05-14 10:56] VITALS: BMI 24.0
[2020-06-06 07:44] LABS: Hematocrit 34.6 % (40-54); Hemoglobin 10.8 g/dL (13.0-16.5); Mean Corp Hgb Conc 31.2 g/dL (32-36); Mean Corpuscular Hgb 31.2 pg (27.0-32.0); Mean Platelet Vol. 10.3 fl (6.2-12.0); Platelet Count 141 K/mm3 (150-450); RBC Distribution Width CV 14.6 % (11.6-14.6); RBC Distribution Width SD 53.1 fl (35.1-43.9); Red Blood Count 3.46 M/mm3 (4.6-6.2); White Blood Count 3.4 K/mm3 (4.4-11.0)
== END ==
LOC: OLS.BROOKB 05:15
PROVIDERS: PCP Family Medicine; Visit Provider Family Medicine
DX: D64.9 Anemia, unspecified (principal)
CPT/HCPCS: 36415; 85027